=== PATIENT | female | born 1955 | race Caucasian/White ===

== ENCOUNTER 2022-03-30 22:15 | Inpatient (IN) | payer MEDICARE, OTHER ==
[~2022-03-30] VITALS: Ht 157.5 cm; Wt 63.5 kg
[2022-03-30] MEDS ORDERED: TIOT18CA3 INH (22:39)
[2022-03-30] MEDS ORDERED: PHEN100C4 PO (22:39)
[2022-03-30] MEDS ORDERED: SERT100T PO (22:39)
[2022-03-30] MEDS ORDERED: QUET400T PO (22:39)
[2022-03-30] MEDS ORDERED: PROP10TA10 PO (22:39)
[2022-03-30] MEDS ORDERED: CLON1TAB12 PO (22:39)
[2022-03-30] MEDS ORDERED: TEMA30CA PO (22:39)
[2022-03-30] MEDS ORDERED: ALBU18HF2 INH (22:39)
[2022-03-30] MEDS ORDERED: VANCOMYCIN IV 1,000 MG in IV DEXTROSE 5% 250 ML IV ONE (22:45)
[2022-03-30] MEDS ORDERED: MORPHINE SULFATE 2 MG/1 ML DISP.SYRIN IV ONE (22:45)
[2022-03-30] MEDS ORDERED: PIPERACILLIN SODIUM/TAZOBACTAM 3.375 G in IV DEXTROSE 5% 50 ML IV ONE (22:45)
[2022-03-30] MEDS ORDERED: IV NORMAL SALINE 1000 ML BAG IV ONE (22:45)
[2022-03-30] MEDS ORDERED: ACETAMINOPHEN ES 500 MG TABLET PO ONE (23:00)
[2022-03-30] MEDS ORDERED: VANCOMYCIN IV 200 ML ONE (23:13)
[2022-03-30] MEDS ORDERED: PIPERACILLIN/TAZOBACTAM/D5W 50 ML IV ONE (23:13)
[2022-03-30] MEDS ORDERED: MORPHINE SULFATE 4 MG/1 ML DISP.SYRIN ONE (23:14)
[2022-03-30] MEDS ORDERED: ACETAMINOPHEN ES 500 MG TABLET ONE (23:14)
[2022-03-30 23:19] LABS: HEMATOCRIT 28.6 % (31.2-41.9); MEAN CORPUSCULAR HEMOGLOBIN 34.1 uug (24.7-32.8); MEAN CORPUSCULAR VOLUME 103.1 fL (75.5-95.3); PLATELET COUNT (AUTO) 239 K/uL (179-408)
[2022-03-30 23:28] LABS: CARBON DIOXIDE 24 mmol/L (21-32); CHLORIDE 101 mmol/L (98-107); CREATININE 0.6 mg/dL (0.6-1.3); GLUCOSE 110 mg/dL (74-106); POTASSIUM 4.1 mmol/L (3.5-5.1); UREA NITROGEN, BLOOD 13 mg/dL (7-18)
[2022-03-30 23:41] LABS: ALANINE AMINOTRANSFERASE 6 U/L (14-59); ALKALINE PHOSPHATASE 83 U/L (50-136); ASPARTATE AMINOTRANSFERASE 19 U/L (15-37); BILIRUBIN,DIRECT 0.1 mg/dL (0.0-0.2); BILIRUBIN,TOTAL 0.4 mg/dL (0.2-1.0); TOTAL PROTEIN, SERUM 6.3 g/dL (6.4-8.2)
[2022-03-30] MEDS ORDERED: CLONAZEPAM 1 MG TABLET ONE (23:44)
[2022-03-30] MEDS ORDERED: QUETIAPINE FUMARATE 200 MG TABLET ONE (23:44)
[2022-03-30] MEDS ORDERED: QUETIAPINE FUMARATE 25 MG TABLET PO ONE (23:45)
[2022-03-30] MEDS ORDERED: IV NS 1000 ML 1,000 ML IV ONE (23:45)
[2022-03-30] MEDS ORDERED: CLONAZEPAM 0.5 MG TABLET PO ONE (23:45)
[2022-03-30] MEDS ORDERED: BENZONATATE 100 MG CAPSULE ONE (23:50)
[2022-03-31] MEDS ORDERED: SWABABLE VALVE TRANSFER SET EA MC ONE (00:41)
[2022-03-31] MEDS ORDERED: IOHEXOL 350 100 ML INFUS..BTL ONE (00:41)
[2022-03-31] MEDS ORDERED: IV NORMAL SALINE 250 ML IV ONE (00:41)
[2022-03-31 01:23] LABS: *BILIRUBIN,URIN NEGATIVE (NEGATIVE); *BLOOD, URINE NEGATIVE (NEGATIVE); *CLARITY,URINE CLEAR (CLEAR); *COLOR,URINE YELLOW (YELLOW); *KETONES,URINE NEGATIVE (NEGATIVE); *UROBILINOGEN,URINE 0.2 E.U./dl (NORMAL); LEUKOCYTE ESTERASE ,URINE NEGATIVE (NEGATIVE); NITRITE, URINE NEGATIVE (NEGATIVE); UGLUCOSE NEGATIVE (NEGATIVE)
[2022-03-31] MEDS ORDERED: ONDANSETRON 4 MG/2 ML VIAL IV PRN (01:30)
[2022-03-31] MEDS ORDERED: MAGNESIUM HYDROXIDE 30 ML LIQUID UDC PO PRN (01:30)
[2022-03-31] MEDS ORDERED: ALBUTEROL SULFATE 2.5 MG/ 0.5 ML NEBU NEB SCH ×2 (03:30→07:35)
[2022-03-31] MEDS ORDERED: IPRATROPIUM BROMIDE 0.5 MG/2.5 ML NEBU NEB SCH (03:30)
[2022-03-31] MEDS ORDERED: MORPHINE SULFATE 4 MG/1 ML DISP.SYRIN ONE (03:44)
[2022-03-31] MEDS ORDERED: MORPHINE SULFATE 4 MG/1 ML DISP.SYRIN IV ONE (03:45)
[2022-03-31] MEDS ORDERED: ACETAMINOPHEN 325 MG TABLET ONE (03:53)
[2022-03-31] MEDS: ACETAMINOPHEN 325 MG TABLET PO PRN ×2 (03:57→20:56)
[2022-03-31] MEDS ORDERED: BENZONATATE 100 MG CAPSULE ONE (04:59)
[2022-03-31] MEDS ORDERED: BENZONATATE 100 MG CAPSULE PO ONE ×2 (05:00)
[2022-03-31] MEDS ORDERED: IBUPROFEN 600 MG TABLET ONE (05:23)
[2022-03-31] MEDS ORDERED: IBUPROFEN 600 MG TABLET PO ONE (05:30)
[2022-03-31] MEDS ORDERED: IV NS 1000 ML 1,000 ML IV ONE (05:30)
[2022-03-31] MEDS ORDERED: PIPERACILLIN SODIUM/TAZOBACTAM 3.375 G in IV DEXTROSE 5% 50 ML IV SCH (06:00)
[2022-03-31] MEDS ORDERED: TEMAZEPAM 15 MG CAPSULE PO PRN (07:45)
[2022-03-31 07:53] LABS: CREATININE 0.7 mg/dL (0.6-1.3); HEMATOCRIT 25.4 % (31.2-41.9); MEAN CORPUSCULAR HEMOGLOBIN 34.6 uug (24.7-32.8); MEAN CORPUSCULAR VOLUME 103.5 fL (75.5-95.3); PLATELET COUNT (AUTO) 215 K/uL (179-408); POTASSIUM 3.4 mmol/L (3.5-5.1)
[2022-03-31] MEDS: ALBUTEROL SULFATE 2.5 MG/ 0.5 ML NEBU NEB SCH ×5 (07:55→23:48)
[2022-03-31] MEDS: IPRATROPIUM BROMIDE 0.5 MG/2.5 ML NEBU NEB SCH ×5 (07:55→23:47)
[2022-03-31 08:02] LABS: MAGNESIUM 1.2 mg/dL (1.8-2.4)
[2022-03-31 08:03] LABS: THYROID STIMULATING HORMONE 0.318 mIU/mL (0.358-3.740)
[2022-03-31] MEDS: QUETIAPINE FUMARATE 200 MG TABLET PO SCH ×2 (08:42→20:55)
[2022-03-31] MEDS: SERTRALINE HCL 100 MG TABLET PO SCH (08:42)
[2022-03-31] MEDS: PANTOPRAZOLE SODIUM 40 MG VIAL IV SCH (08:42)
[2022-03-31] MEDS: PHENYTOIN SODIUM EXTENDED 100 MG CAPSULE.SA PO SCH ×3 (08:42→17:41)
[2022-03-31] MEDS: ENOXAPARIN SODIUM 40 MG/0.4 ML DISP.SYRIN SQ SCH (08:45)
[2022-03-31] MEDS: IV NS 1000 ML 1,000 ML IV PRN (08:55)
[2022-03-31] MEDS: MORPHINE SULFATE 2 MG/1 ML DISP.SYRIN IV PRN ×2 (10:04→21:43)
[2022-03-31] MEDS: PIPERACILLIN SODIUM/TAZOBACTAM 3.375 G in IV DEXTROSE 5% 50 ML IV SCH ×2 (10:15→21:24)
[2022-03-31 11:52] VITALS: BP 96/46
[2022-03-31] MEDS ORDERED: MAGNESIUM SULFATE/D5W 100 ML IV SCH (14:00)
[2022-03-31] MEDS ORDERED: MAGNESIUM OXIDE 400 MG TABLET PO ONE (14:00)
[2022-03-31] MEDS ORDERED: POTASSIUM CHLORIDE 50 ML IV SCH (14:00)
[2022-03-31] MEDS ORDERED: POTASSIUM CHLORIDE 20 MEQ TAB.PRT.SR PO ONE (14:00)
[2022-03-31 15:36] VITALS: BP 96/49
[2022-03-31] MEDS ORDERED: FLUT1DIS28 IH (15:40)
[2022-03-31] MEDS ORDERED: POTA10CA43 PO (15:41)
[2022-03-31 20:18] VITALS: BP 110/54
[2022-03-31] MEDS ORDERED: BISACODYL 5 MG TABLET.DR PO ONE (21:30)
[2022-03-31] MEDS: VANCOMYCIN IV 1,000 MG in IV DEXTROSE 5% 250 ML IV SCH (22:11)
[2022-04-01] VITALS (19 sets, daily range): BP systolic 72–112; BP diastolic 39–68
[2022-04-01] MEDS: IPRATROPIUM BROMIDE 0.5 MG/2.5 ML NEBU NEB SCH ×5 (02:20→21:17)
[2022-04-01] MEDS: ALBUTEROL SULFATE 2.5 MG/ 0.5 ML NEBU NEB SCH ×5 (02:21→21:17)
[2022-04-01] MEDS: PIPERACILLIN SODIUM/TAZOBACTAM 3.375 G in IV DEXTROSE 5% 50 ML IV SCH ×3 (04:45→21:11)
[2022-04-01] MEDS: IV NS 1000 ML 1,000 ML IV PRN ×2 (04:49→17:51)
[2022-04-01] MEDS: MORPHINE SULFATE 2 MG/1 ML DISP.SYRIN IV PRN ×2 (06:23→10:29)
[2022-04-01] MEDS ORDERED: BISACODYL 5 MG TABLET.DR PO ONE (08:15)
[2022-04-01 08:16] LABS: HEMATOCRIT 25.2 % (31.2-41.9); MEAN CORPUSCULAR HEMOGLOBIN 34.3 uug (24.7-32.8); MEAN CORPUSCULAR VOLUME 103.3 fL (75.5-95.3); PLATELET COUNT (AUTO) 252 K/uL (179-408)
[2022-04-01] MEDS: QUETIAPINE FUMARATE 200 MG TABLET PO SCH ×2 (08:32→21:00)
[2022-04-01] MEDS: POTASSIUM CHLORIDE 10 MEQ TAB.PRT.SR PO SCH (08:32)
[2022-04-01] MEDS: SERTRALINE HCL 100 MG TABLET PO SCH (08:32)
[2022-04-01] MEDS: ENOXAPARIN SODIUM 40 MG/0.4 ML DISP.SYRIN SQ SCH (08:32)
[2022-04-01] MEDS: PANTOPRAZOLE SODIUM 40 MG VIAL IV SCH (08:32)
[2022-04-01] MEDS: PHENYTOIN SODIUM EXTENDED 100 MG CAPSULE.SA PO SCH ×3 (08:32→17:51)
[2022-04-01 08:34] LABS: BILIRUBIN,TOTAL 0.3 mg/dL (0.2-1.0); CREATININE 0.7 mg/dL (0.6-1.3); PHOSPHOROUS 3.4 mg/dL (2.5-4.9); POTASSIUM 3.2 mmol/L (3.5-5.1); TOTAL PROTEIN, SERUM 5.8 g/dL (6.4-8.2)
[2022-04-01 08:39] LABS: THYROID STIMULATING HORMONE 0.264 mIU/mL (0.358-3.740)
[2022-04-01] MEDS: MAGNESIUM SULFATE/D5W 100 ML IV SCH ×2 (09:35→10:29)
[2022-04-01] MEDS ORDERED: POTASSIUM CHLORIDE 20 MEQ TAB.PRT.SR PO ONE (10:00)
[2022-04-01] MEDS: VANCOMYCIN IV 1,000 MG in IV DEXTROSE 5% 250 ML IV SCH (11:45)
[2022-04-01] MEDS: CLONAZEPAM 1 MG TABLET PO PRN (15:02)
[2022-04-01] MEDS ORDERED: IV NORMAL SALINE 500 ML BAG IV ONE (16:45)
[2022-04-01] MEDS: PHENYLEPHRINE IV 50 MG in IV NORMAL SALINE 245 ML IV PRN (18:43)
[2022-04-01] MEDS ORDERED: IPRATROPIUM BROMIDE 0.5 MG/2.5 ML NEBU NEB PRN (20:00)
[2022-04-01] MEDS ORDERED: LEVALBUTEROL HCL NEB 0.63 MG/3 ML NEBU NEB PRN (20:00)
[2022-04-01] MEDS ORDERED: MORPHINE SULFATE 2 MG/1 ML DISP.SYRIN IV ONE (20:44)
[2022-04-01] MEDS: ACIDOPHILUS/BULGARICUS CHEW TAB PO SCH (21:11)
[2022-04-01] MEDS ORDERED: NOREPINEPHRINE BITARTRATE 4 MG/4 ML VIAL IV ONE (23:41)
[2022-04-01] MEDS ORDERED: NOREPINEPHRINE BITARTRATE 8 MG in IV NORMAL SALINE 242 ML IV PRN (23:45)
[2022-04-01] MEDS: NOREPINEPHRINE BITARTRATE 8 MG in IV NORMAL SALINE 242 ML IV PRN (23:48)
[2022-04-02] VITALS (33 sets, daily range): BP systolic 79–141; BP diastolic 32–77
[2022-04-02] MEDS ORDERED: IV DEXTROSE 5%-0.9%NS+20MeqKCL 1,000 ML IV ONE (00:30)
[2022-04-02] MEDS: IV DEXTROSE 5%-0.9%NS+20MeqKCL 1,000 ML IV PRN ×2 (00:35→15:45)
[2022-04-02] MEDS: IPRATROPIUM BROMIDE 0.5 MG/2.5 ML NEBU NEB SCH ×7 (00:49→23:20)
[2022-04-02] MEDS: ALBUTEROL SULFATE 2.5 MG/ 0.5 ML NEBU NEB SCH ×7 (00:50→23:20)
[2022-04-02] MEDS: VANCOMYCIN IV 1,000 MG in IV DEXTROSE 5% 250 ML IV SCH (03:15)
[2022-04-02] MEDS ORDERED: NOREPINEPHRINE BITARTRATE 4 MG/4 ML VIAL IV ONE (03:50)
[2022-04-02] MEDS: NOREPINEPHRINE BITARTRATE 8 MG in IV NORMAL SALINE 242 ML IV PRN ×2 (03:55→17:26)
[2022-04-02] MEDS: PIPERACILLIN SODIUM/TAZOBACTAM 3.375 G in IV DEXTROSE 5% 50 ML IV SCH ×3 (04:38→20:50)
[2022-04-02 05:32] LABS: HEMATOCRIT 28.1 % (31.2-41.9); MEAN CORPUSCULAR HEMOGLOBIN 33.1 uug (24.7-32.8); MEAN CORPUSCULAR VOLUME 103.6 fL (75.5-95.3); PLATELET COUNT (AUTO) 339 K/uL (179-408)
[2022-04-02 05:50] LABS: BILIRUBIN,TOTAL 0.3 mg/dL (0.2-1.0); CREATININE 0.8 mg/dL (0.6-1.3); PHENYTOIN (DILANTIN) 8.6 ug/mL (10.0-20.0); POTASSIUM 4.1 mmol/L (3.5-5.1); TOTAL PROTEIN, SERUM 6.6 g/dL (6.4-8.2)
[2022-04-02 06:22] LABS: ABG BASE EXCESS -7.8 mmol/L; ABG HCO3 15.5 mmol/L; ABG PCO2 24.6 mmHg (35.0-45.0); ABG PH 7.418 (7.350-7.450); ABG PO2 123.6 mmHg (75.0-100.0); ABG SITE LEFT RADIAL; ABG TOTAL HEMOGLOBIN 9.1 G/dL (12.0-16.0); COHb 0.2 % (0.5-1.5); MetHb 0.3 % (0.0-1.5); O2Hb 97.9 % (94.0-97.0); VENT MODE Nasal Cannula
[2022-04-02] MEDS: POTASSIUM CHLORIDE 10 MEQ TAB.PRT.SR PO SCH (09:34)
[2022-04-02] MEDS: QUETIAPINE FUMARATE 200 MG TABLET PO SCH ×2 (09:34→23:47)
[2022-04-02] MEDS: PHENYTOIN SODIUM EXTENDED 100 MG CAPSULE.SA PO SCH ×2 (09:34→13:59)
[2022-04-02] MEDS: PANTOPRAZOLE SODIUM 40 MG VIAL IV SCH (09:34)
[2022-04-02] MEDS: ACIDOPHILUS/BULGARICUS CHEW TAB PO SCH ×2 (09:35→20:55)
[2022-04-02] MEDS: PROTEIN SUPPLEMENT (PROSTAT) 30 ML LIQUID PO SCH ×3 (09:36→17:27)
[2022-04-02] MEDS: SERTRALINE HCL 100 MG TABLET PO SCH (09:42)
[2022-04-02] MEDS: GLUCERNA SHAKE 237 ML CAN PO SCH ×3 (10:48→17:26)
[2022-04-02] MEDS: APIXABAN 5 MG TABLET PO SCH ×2 (12:13→23:34)
[2022-04-02] MEDS: MORPHINE SULFATE 2 MG/1 ML DISP.SYRIN IV PRN (13:59)
[2022-04-02] MEDS ORDERED: SOD FERRIC GLUC COMPLX/SUCROSE 125 MG in IV NORMAL SALINE 100 ML IV SCH (14:00)
[2022-04-02] MEDS: IRON SUCROSE COMPLEX 200 MG in IV NORMAL SALINE 100 ML IV SCH (14:17)
[2022-04-02] MEDS: OSELTAMIVIR PHOSPHATE 75 MG CAPSULE PO SCH (20:51)
[2022-04-02] MEDS: levETIRAcetam 500 MG TABLET PO SCH (20:56)
[2022-04-03] VITALS (31 sets, daily range): BP systolic 100–143; BP diastolic 5–78
[2022-04-03] MEDS: PHENYLEPHRINE IV 50 MG in IV NORMAL SALINE 245 ML IV PRN (00:30)
[2022-04-03] MEDS: VANCOMYCIN IV 1,000 MG in IV DEXTROSE 5% 250 ML IV SCH (02:38)
[2022-04-03] MEDS: IPRATROPIUM BROMIDE 0.5 MG/2.5 ML NEBU NEB SCH ×6 (03:56→23:32)
[2022-04-03] MEDS: ALBUTEROL SULFATE 2.5 MG/ 0.5 ML NEBU NEB SCH ×6 (03:58→23:32)
[2022-04-03 05:35] LABS: HEMATOCRIT 25.8 % (31.2-41.9); MEAN CORPUSCULAR HEMOGLOBIN 34.9 uug (24.7-32.8); MEAN CORPUSCULAR VOLUME 103.4 fL (75.5-95.3); PLATELET COUNT (AUTO) 326 K/uL (179-408)
[2022-04-03 05:48] LABS: CREATININE 0.8 mg/dL (0.6-1.3); MAGNESIUM 1.6 mg/dL (1.8-2.4); PHOSPHOROUS 3.3 mg/dL (2.5-4.9); POTASSIUM 3.4 mmol/L (3.5-5.1)
[2022-04-03] MEDS: PIPERACILLIN SODIUM/TAZOBACTAM 3.375 G in IV DEXTROSE 5% 50 ML IV SCH ×2 (06:14→13:18)
[2022-04-03] MEDS: SERTRALINE HCL 100 MG TABLET PO SCH (09:00)
[2022-04-03] MEDS: APIXABAN 5 MG TABLET PO SCH ×2 (09:00→21:24)
[2022-04-03] MEDS: ACIDOPHILUS/BULGARICUS CHEW TAB PO SCH ×2 (09:04→21:15)
[2022-04-03] MEDS: levETIRAcetam 500 MG TABLET PO SCH (09:04)
[2022-04-03] MEDS: OSELTAMIVIR PHOSPHATE 75 MG CAPSULE PO SCH ×2 (09:05→21:15)
[2022-04-03] MEDS: QUETIAPINE FUMARATE 200 MG TABLET PO SCH ×2 (09:05→21:15)
[2022-04-03] MEDS: PANTOPRAZOLE SODIUM 40 MG TABLET.DR PO SCH (09:05)
[2022-04-03] MEDS: POTASSIUM CHLORIDE 10 MEQ TAB.PRT.SR PO SCH (09:05)
[2022-04-03] MEDS: PROTEIN SUPPLEMENT (PROSTAT) 30 ML LIQUID PO SCH ×3 (09:06→17:00)
[2022-04-03] MEDS: GLUCERNA SHAKE 237 ML CAN PO SCH ×3 (09:07→17:00)
[2022-04-03 09:53] LABS: ABG BASE EXCESS -7.4 mmol/L; ABG HCO3 18.3 mmol/L; ABG PCO2 37.6 mmHg (35.0-45.0); ABG PH 7.304 (7.350-7.450); ABG PO2 60.1 mmHg (75.0-100.0); ABG SITE LEFT RADIAL; ABG TOTAL HEMOGLOBIN 9.1 G/dL (12.0-16.0); COHb 0.1 % (0.5-1.5); MetHb 0.3 % (0.0-1.5); O2Hb 89.1 % (94.0-97.0); VENT MODE Nasal Cannula
[2022-04-03] MEDS: MAGNESIUM SULFATE/D5W 100 ML IV SCH ×2 (10:28→11:52)
[2022-04-03] MEDS ORDERED: POTASSIUM CHLORIDE 20 MEQ TAB.PRT.SR PO ONE (10:30)
[2022-04-03] MEDS: POTASSIUM CHLORIDE 50 ML IV SCH ×2 (13:27→14:50)
[2022-04-03] MEDS: methylPREDNISolone SOD SUCC 40 MG/ML VIAL IV SCH ×2 (14:08→21:15)
[2022-04-03] MEDS: PIPERACILLIN SODIUM/TAZOBACTAM 3.375 G in IV DEXTROSE 5% 100 ML IV SCH (21:06)
[2022-04-03] MEDS: levETIRAcetam IV 1,000 MG in IV DEXTROSE 5% 100 ML IV SCH (21:09)
[2022-04-04] VITALS (24 sets, daily range): BP systolic 88–162; BP diastolic 3–107
[2022-04-04] MEDS: IPRATROPIUM BROMIDE 0.5 MG/2.5 ML NEBU NEB SCH ×4 (03:25→15:20)
[2022-04-04] MEDS: ALBUTEROL SULFATE 2.5 MG/ 0.5 ML NEBU NEB SCH ×4 (03:25→15:20)
[2022-04-04] MEDS: PIPERACILLIN SODIUM/TAZOBACTAM 3.375 G in IV DEXTROSE 5% 100 ML IV SCH ×3 (04:49→21:04)
[2022-04-04] MEDS: IV DEXTROSE 5%-0.9%NS+20MeqKCL 1,000 ML IV PRN (04:53)
[2022-04-04 05:28] LABS: HEMATOCRIT 26.2 % (31.2-41.9); MEAN CORPUSCULAR HEMOGLOBIN 35.2 uug (24.7-32.8); MEAN CORPUSCULAR VOLUME 101.7 fL (75.5-95.3); PLATELET COUNT (AUTO) 391 K/uL (179-408)
[2022-04-04 05:35] LABS: CREATININE 0.7 mg/dL (0.6-1.3); POTASSIUM 3.1 mmol/L (3.5-5.1)
[2022-04-04 05:39] LABS: MAGNESIUM 1.5 mg/dL (1.8-2.4); PHOSPHOROUS 3.8 mg/dL (2.5-4.9)
[2022-04-04] MEDS ORDERED: methylPREDNISolone SOD SUCC 125 MG/2 ML VIAL IV SCH (06:00)
[2022-04-04] MEDS: PANTOPRAZOLE SODIUM 40 MG TABLET.DR PO SCH (07:00)
[2022-04-04] MEDS: methylPREDNISolone SOD SUCC 125 MG/2 ML VIAL IV SCH ×2 (07:42→16:55)
[2022-04-04] MEDS: GLUCERNA SHAKE 237 ML CAN PO SCH ×3 (08:00→17:00)
[2022-04-04] MEDS: PROTEIN SUPPLEMENT (PROSTAT) 30 ML LIQUID PO SCH ×3 (08:00→17:26)
[2022-04-04] MEDS: levETIRAcetam IV 1,000 MG in IV DEXTROSE 5% 100 ML IV SCH ×2 (09:21→21:06)
[2022-04-04] MEDS ORDERED: FUROSEMIDE 20 MG/2 ML VIAL IV ONE (10:00)
[2022-04-04] MEDS: POTASSIUM CHLORIDE 50 ML IV SCH ×4 (10:05→13:48)
[2022-04-04] MEDS: ACIDOPHILUS/BULGARICUS CHEW TAB PO SCH ×2 (10:18→21:10)
[2022-04-04] MEDS: OSELTAMIVIR PHOSPHATE 75 MG CAPSULE PO SCH ×2 (10:19→21:05)
[2022-04-04] MEDS: QUETIAPINE FUMARATE 200 MG TABLET PO SCH ×2 (10:19→21:05)
[2022-04-04] MEDS: POTASSIUM CHLORIDE 10 MEQ TAB.PRT.SR PO SCH (10:19)
[2022-04-04] MEDS: APIXABAN 5 MG TABLET PO SCH ×2 (10:21→21:37)
[2022-04-04] MEDS: SERTRALINE HCL 100 MG TABLET PO SCH (10:21)
[2022-04-04 13:51] LABS: *OCCULT BLOOD STOOL NEGATIVE (NEGATIVE)
[2022-04-04] MEDS: IRON SUCROSE COMPLEX 200 MG in IV NORMAL SALINE 100 ML IV SCH (15:03)
[2022-04-04] MEDS: MAGNESIUM SULFATE/D5W 100 ML IV SCH ×2 (15:38→16:56)
[2022-04-05] VITALS (16 sets, daily range): BP systolic 89–143; BP diastolic 47–75
[2022-04-05] MEDS: IPRATROPIUM BROMIDE 0.5 MG/2.5 ML NEBU NEB SCH ×8 (00:36→23:40)
[2022-04-05] MEDS: ALBUTEROL SULFATE 2.5 MG/ 0.5 ML NEBU NEB SCH ×8 (00:36→23:41)
[2022-04-05] MEDS: methylPREDNISolone SOD SUCC 125 MG/2 ML VIAL IV SCH ×4 (01:22→23:31)
[2022-04-05] MEDS: PIPERACILLIN SODIUM/TAZOBACTAM 3.375 G in IV DEXTROSE 5% 100 ML IV SCH ×3 (04:00→20:33)
[2022-04-05 05:35] LABS: HEMATOCRIT 25.3 % (31.2-41.9); MEAN CORPUSCULAR HEMOGLOBIN 33.9 uug (24.7-32.8); MEAN CORPUSCULAR VOLUME 100.5 fL (75.5-95.3); PLATELET COUNT (AUTO) 455 K/uL (179-408)
[2022-04-05 05:38] LABS: CREATININE 0.8 mg/dL (0.6-1.3); MAGNESIUM 1.8 mg/dL (1.8-2.4); PHOSPHOROUS 2.5 mg/dL (2.5-4.9); POTASSIUM 3.6 mmol/L (3.5-5.1)
[2022-04-05] MEDS: GLUCERNA SHAKE 237 ML CAN PO SCH ×4 (08:00→17:24)
[2022-04-05] MEDS: levETIRAcetam IV 1,000 MG in IV DEXTROSE 5% 100 ML IV SCH (08:32)
[2022-04-05] MEDS: OSELTAMIVIR PHOSPHATE 75 MG CAPSULE PO SCH ×2 (08:32→20:47)
[2022-04-05] MEDS: ACIDOPHILUS/BULGARICUS CHEW TAB PO SCH ×2 (08:33→20:46)
[2022-04-05] MEDS: APIXABAN 5 MG TABLET PO SCH ×2 (08:33→20:46)
[2022-04-05] MEDS: QUETIAPINE FUMARATE 200 MG TABLET PO SCH ×2 (08:34→20:46)
[2022-04-05] MEDS: SERTRALINE HCL 100 MG TABLET PO SCH (08:34)
[2022-04-05] MEDS: POTASSIUM CHLORIDE 10 MEQ TAB.PRT.SR PO SCH (08:34)
[2022-04-05] MEDS: PROTEIN SUPPLEMENT (PROSTAT) 30 ML LIQUID PO SCH ×3 (08:36→16:41)
[2022-04-05] MEDS: PANTOPRAZOLE SODIUM 40 MG TABLET.DR PO SCH (08:37)
[2022-04-05] MEDS: BUMETANIDE 1 MG/4 ML VIAL IV SCH ×2 (11:44→16:41)
[2022-04-05] MEDS: levETIRAcetam 500 MG TABLET PO SCH (20:46)
[2022-04-06 00:04] VITALS: BP 97/62
[2022-04-06] MEDS: PIPERACILLIN SODIUM/TAZOBACTAM 3.375 G in IV DEXTROSE 5% 100 ML IV SCH ×3 (03:00→20:05)
[2022-04-06] MEDS: IPRATROPIUM BROMIDE 0.5 MG/2.5 ML NEBU NEB SCH ×6 (03:30→23:12)
[2022-04-06] MEDS: ALBUTEROL SULFATE 2.5 MG/ 0.5 ML NEBU NEB SCH ×6 (03:30→23:12)
[2022-04-06 04:20] VITALS: BP 113/73
[2022-04-06] MEDS: PANTOPRAZOLE SODIUM 40 MG TABLET.DR PO SCH (06:21)
[2022-04-06 06:58] LABS: MEAN CORPUSCULAR HEMOGLOBIN 34.8 uug (24.7-32.8); MEAN CORPUSCULAR VOLUME 99.8 fL (75.5-95.3); PLATELET COUNT (AUTO) 582 K/uL (179-408)
[2022-04-06 07:12] LABS: CREATININE 0.8 mg/dL (0.6-1.3); MAGNESIUM 1.6 mg/dL (1.8-2.4); PHOSPHOROUS 2.9 mg/dL (2.5-4.9)
[2022-04-06 07:32] LABS: POTASSIUM 2.8 mmol/L (3.5-5.1)
[2022-04-06 07:36] VITALS: BP 115/71
[2022-04-06] MEDS: GLUCERNA SHAKE 237 ML CAN PO SCH ×3 (08:00→17:10)
[2022-04-06] MEDS: levETIRAcetam 500 MG TABLET PO SCH ×2 (09:40→20:06)
[2022-04-06] MEDS: ACIDOPHILUS/BULGARICUS CHEW TAB PO SCH ×2 (09:40→20:12)
[2022-04-06] MEDS: BUMETANIDE 1 MG/4 ML VIAL IV SCH ×2 (09:40→17:09)
[2022-04-06] MEDS: POTASSIUM CHLORIDE 10 MEQ TAB.PRT.SR PO SCH ×3 (09:41→15:53)
[2022-04-06] MEDS: OSELTAMIVIR PHOSPHATE 75 MG CAPSULE PO SCH ×2 (09:41→20:13)
[2022-04-06] MEDS: SERTRALINE HCL 100 MG TABLET PO SCH (09:41)
[2022-04-06] MEDS: QUETIAPINE FUMARATE 200 MG TABLET PO SCH ×2 (09:41→20:06)
[2022-04-06] MEDS: APIXABAN 5 MG TABLET PO SCH ×2 (09:42→20:11)
[2022-04-06] MEDS: methylPREDNISolone SOD SUCC 125 MG/2 ML VIAL IV SCH ×2 (09:44→15:52)
[2022-04-06] MEDS: MAGNESIUM SULFATE/D5W 100 ML IV SCH ×2 (09:45→10:37)
[2022-04-06] MEDS: PROTEIN SUPPLEMENT (PROSTAT) 30 ML LIQUID PO SCH ×3 (10:00→17:10)
[2022-04-06 11:19] VITALS: BP 116/66
[2022-04-06 15:21] VITALS: BP 101/50
[2022-04-06 20:29] VITALS: BP 117/67
[2022-04-07] MEDS: methylPREDNISolone SOD SUCC 125 MG/2 ML VIAL IV SCH ×3 (00:03→15:47)
[2022-04-07 00:29] VITALS: BP 117/67
[2022-04-07] MEDS: ALBUTEROL SULFATE 2.5 MG/ 0.5 ML NEBU NEB SCH ×6 (03:28→23:56)
[2022-04-07] MEDS: IPRATROPIUM BROMIDE 0.5 MG/2.5 ML NEBU NEB SCH ×6 (03:28→23:56)
[2022-04-07] MEDS: PIPERACILLIN SODIUM/TAZOBACTAM 3.375 G in IV DEXTROSE 5% 100 ML IV SCH ×3 (04:37→19:44)
[2022-04-07 05:04] VITALS: BP_SYST 117; BP_SYST 119; BP_DIAS 67; BP_DIAS 73
[2022-04-07 05:48] LABS: HEMATOCRIT 30.7 % (31.2-41.9); MEAN CORPUSCULAR HEMOGLOBIN 33.4 uug (24.7-32.8); MEAN CORPUSCULAR VOLUME 99.4 fL (75.5-95.3); PLATELET COUNT (AUTO) 738 K/uL (179-408)
[2022-04-07 05:57] LABS: POTASSIUM 3.3 mmol/L (3.5-5.1)
[2022-04-07 05:58] LABS: MAGNESIUM 1.9 mg/dL (1.8-2.4); PHOSPHOROUS 1.8 mg/dL (2.5-4.9)
[2022-04-07] MEDS: PANTOPRAZOLE SODIUM 40 MG TABLET.DR PO SCH (06:38)
[2022-04-07 07:35] VITALS: BP 126/78
[2022-04-07] MEDS: SERTRALINE HCL 100 MG TABLET PO SCH (08:29)
[2022-04-07] MEDS: QUETIAPINE FUMARATE 200 MG TABLET PO SCH ×2 (08:29→20:06)
[2022-04-07] MEDS: POTASSIUM CHLORIDE 10 MEQ TAB.PRT.SR PO SCH (08:29)
[2022-04-07] MEDS: levETIRAcetam 500 MG TABLET PO SCH ×2 (08:30→20:06)
[2022-04-07] MEDS: APIXABAN 5 MG TABLET PO SCH ×2 (08:30→20:05)
[2022-04-07] MEDS: ACIDOPHILUS/BULGARICUS CHEW TAB PO SCH ×2 (08:30→20:06)
[2022-04-07] MEDS: GLUCERNA SHAKE 237 ML CAN PO SCH ×3 (08:31→16:02)
[2022-04-07] MEDS: PROTEIN SUPPLEMENT (PROSTAT) 30 ML LIQUID PO SCH ×3 (08:31→16:03)
[2022-04-07] MEDS: MORPHINE SULFATE 2 MG/1 ML DISP.SYRIN IV PRN (08:34)
[2022-04-07] MEDS: OSELTAMIVIR PHOSPHATE 75 MG CAPSULE PO SCH (08:37)
[2022-04-07] MEDS ORDERED: POTASSIUM CHLORIDE 20 MEQ TAB.PRT.SR PO ONE (10:00)
[2022-04-07 11:06] VITALS: BP 126/71
[2022-04-07 15:10] VITALS: BP 105/57
[2022-04-07] MEDS ORDERED: NEUTRA PHOS PACKET PO SCH (16:30)
[2022-04-07 20:00] VITALS: BP 94/46
[2022-04-08] VITALS: BP 104/64
[2022-04-08] MEDS: methylPREDNISolone SOD SUCC 125 MG/2 ML VIAL IV SCH ×3 (00:36→15:54)
[2022-04-08] MEDS: ALBUTEROL SULFATE 2.5 MG/ 0.5 ML NEBU NEB SCH ×5 (03:54→19:53)
[2022-04-08] MEDS: IPRATROPIUM BROMIDE 0.5 MG/2.5 ML NEBU NEB SCH ×5 (03:54→19:53)
[2022-04-08 04:00] VITALS: BP 110/72
[2022-04-08] MEDS: PANTOPRAZOLE SODIUM 40 MG TABLET.DR PO SCH (06:29)
[2022-04-08 07:25] LABS: HEMATOCRIT 29.9 % (31.2-41.9); MEAN CORPUSCULAR HEMOGLOBIN 32.6 uug (24.7-32.8); MEAN CORPUSCULAR VOLUME 100.7 fL (75.5-95.3); PLATELET COUNT (AUTO) 782 K/uL (179-408)
[2022-04-08 07:37] LABS: CREATININE 0.8 mg/dL (0.6-1.3); MAGNESIUM 2.1 mg/dL (1.8-2.4); PHOSPHOROUS 2.9 mg/dL (2.5-4.9); POTASSIUM 3.8 mmol/L (3.5-5.1)
[2022-04-08 07:50] VITALS: BP 116/66
[2022-04-08] MEDS: PROTEIN SUPPLEMENT (PROSTAT) 30 ML LIQUID PO SCH ×3 (08:00→15:58)
[2022-04-08] MEDS: GLUCERNA SHAKE 237 ML CAN PO SCH ×3 (08:00→15:58)
[2022-04-08] MEDS: SERTRALINE HCL 100 MG TABLET PO SCH (08:41)
[2022-04-08] MEDS: POTASSIUM CHLORIDE 10 MEQ TAB.PRT.SR PO SCH (08:41)
[2022-04-08] MEDS: levETIRAcetam 500 MG TABLET PO SCH ×2 (08:41→20:54)
[2022-04-08] MEDS: APIXABAN 5 MG TABLET PO SCH ×2 (08:42→20:56)
[2022-04-08] MEDS: ACIDOPHILUS/BULGARICUS CHEW TAB PO SCH ×2 (08:42→20:54)
[2022-04-08] MEDS: QUETIAPINE FUMARATE 200 MG TABLET PO SCH (08:43)
[2022-04-08] MEDS: ALBUTEROL SULFATE 1.25 MG/3 ML NEBU NEB PRN (08:56)
[2022-04-08] MEDS ORDERED: BENZONATATE 100 MG CAPSULE PO PRN (10:00)
[2022-04-08 11:25] VITALS: BP 114/63
[2022-04-08] MEDS: ACETAMINOPHEN 325 MG TABLET PO PRN ×2 (12:12→15:54)
[2022-04-08 15:14] VITALS: BP 102/52
[2022-04-08 20:00] VITALS: BP 122/70
[2022-04-08] MEDS ORDERED: FUROSEMIDE 40 MG/4 ML VIAL IV ONE (20:30)
[2022-04-09] VITALS (18 sets, daily range): BP systolic 103–140; BP diastolic 59–84
[2022-04-09] MEDS: methylPREDNISolone SOD SUCC 125 MG/2 ML VIAL IV SCH ×3 (00:17→16:41)
[2022-04-09] MEDS: ALBUTEROL SULFATE 2.5 MG/ 0.5 ML NEBU NEB SCH ×7 (00:23→23:48)
[2022-04-09] MEDS: IPRATROPIUM BROMIDE 0.5 MG/2.5 ML NEBU NEB SCH ×7 (00:23→23:48)
[2022-04-09] MEDS: PANTOPRAZOLE SODIUM 40 MG TABLET.DR PO SCH (06:33)
[2022-04-09 06:55] LABS: HEMATOCRIT 29.8 % (31.2-41.9); MEAN CORPUSCULAR HEMOGLOBIN 34.5 uug (24.7-32.8); MEAN CORPUSCULAR VOLUME 100.6 fL (75.5-95.3); PLATELET COUNT (AUTO) 874 K/uL (179-408)
[2022-04-09 07:05] LABS: CREATININE 0.9 mg/dL (0.6-1.3); PHOSPHOROUS 2.7 mg/dL (2.5-4.9); POTASSIUM 3.3 mmol/L (3.5-5.1)
[2022-04-09] MEDS: levETIRAcetam 500 MG TABLET PO SCH ×2 (08:38→20:44)
[2022-04-09] MEDS: ACIDOPHILUS/BULGARICUS CHEW TAB PO SCH ×2 (08:38→20:44)
[2022-04-09] MEDS: SERTRALINE HCL 100 MG TABLET PO SCH (08:38)
[2022-04-09] MEDS: APIXABAN 5 MG TABLET PO SCH ×2 (08:39→22:00)
[2022-04-09] MEDS: POTASSIUM CHLORIDE 10 MEQ TAB.PRT.SR PO SCH (08:39)
[2022-04-09] MEDS: PROTEIN SUPPLEMENT (PROSTAT) 30 ML LIQUID PO SCH ×3 (08:40→16:42)
[2022-04-09] MEDS: GLUCERNA SHAKE 237 ML CAN PO SCH ×3 (08:40→17:11)
[2022-04-09] MEDS ORDERED: POTASSIUM CHLORIDE 20 MEQ TAB.PRT.SR PO ONE (10:00)
[2022-04-09] MEDS ORDERED: MEROPENEM 0.5 G in IV NORMAL SALINE 50 ML IV SCH (11:15)
[2022-04-09 11:57] LABS: BAND % (MANUAL) 1 % (0-10); EOSINOPHILS % (MANUAL) 1 % (0-8); LYMPHOCYTES % (MANUAL) 7 % (20-40); MONOCYTES % (MANUAL) 2 % (2-10); NEUTROPHILS % (MANUAL) 89 % (42-75)
[2022-04-09] MEDS ORDERED: VANCOMYCIN IV 1,250 MG in IV DEXTROSE 5% 250 ML IV ONE (12:00)
[2022-04-09] MEDS: CLONAZEPAM 1 MG TABLET PO PRN (12:15)
[2022-04-09] MEDS: MEROPENEM 1 G in IV NORMAL SALINE 100 ML IV SCH ×2 (14:53→22:23)
[2022-04-09] MEDS: ACETAMINOPHEN 325 MG TABLET PO PRN (22:00)
[2022-04-10] VITALS (24 sets, daily range): BP systolic 104–127; BP diastolic 60–99
[2022-04-10] MEDS: methylPREDNISolone SOD SUCC 125 MG/2 ML VIAL IV SCH ×2 (00:34→08:35)
[2022-04-10] MEDS: IPRATROPIUM BROMIDE 0.5 MG/2.5 ML NEBU NEB SCH ×6 (03:17→23:41)
[2022-04-10] MEDS: ALBUTEROL SULFATE 2.5 MG/ 0.5 ML NEBU NEB SCH ×6 (03:18→23:41)
[2022-04-10 05:10] LABS: HEMATOCRIT 29.3 % (31.2-41.9); MEAN CORPUSCULAR HEMOGLOBIN 32.9 uug (24.7-32.8); MEAN CORPUSCULAR VOLUME 101.3 fL (75.5-95.3); PLATELET COUNT (AUTO) 853 K/uL (179-408)
[2022-04-10 05:30] LABS: CREATININE 0.8 mg/dL (0.6-1.3); MAGNESIUM 1.9 mg/dL (1.8-2.4); PHOSPHOROUS 2.4 mg/dL (2.5-4.9); POTASSIUM 3.9 mmol/L (3.5-5.1)
[2022-04-10] MEDS: MEROPENEM 1 G in IV NORMAL SALINE 100 ML IV SCH ×3 (05:40→22:09)
[2022-04-10] MEDS: ACETAMINOPHEN 325 MG TABLET PO PRN ×2 (05:40→06:15)
[2022-04-10 06:02] LABS: BAND % (MANUAL) 4 % (0-10)
[2022-04-10 06:03] LABS: LYMPHOCYTES % (MANUAL) 6 % (20-40); MONOCYTES % (MANUAL) 2 % (2-10); NEUTROPHILS % (MANUAL) 88 % (42-75)
[2022-04-10] MEDS: VANCOMYCIN IV 1,000 MG in IV DEXTROSE 5% 250 ML IV SCH ×2 (06:14→23:40)
[2022-04-10] MEDS: PANTOPRAZOLE SODIUM 40 MG TABLET.DR PO SCH (07:28)
[2022-04-10] MEDS: levETIRAcetam 500 MG TABLET PO SCH ×2 (08:36→21:46)
[2022-04-10] MEDS: ACIDOPHILUS/BULGARICUS CHEW TAB PO SCH ×2 (08:36→21:46)
[2022-04-10] MEDS: POTASSIUM CHLORIDE 10 MEQ TAB.PRT.SR PO SCH (08:37)
[2022-04-10] MEDS: APIXABAN 5 MG TABLET PO SCH ×2 (08:37→22:32)
[2022-04-10] MEDS: GLUCERNA SHAKE 237 ML CAN PO SCH ×3 (08:39→17:26)
[2022-04-10] MEDS: SERTRALINE HCL 100 MG TABLET PO SCH (08:39)
[2022-04-10] MEDS: PROTEIN SUPPLEMENT (PROSTAT) 30 ML LIQUID PO SCH ×3 (08:41→17:26)
[2022-04-10] MEDS ORDERED: NEUTRA PHOS PACKET PO ONE (17:00)
[2022-04-10] MEDS: methylPREDNISolone SOD SUCC 40 MG/ML VIAL IV SCH (21:46)
[2022-04-11] VITALS (22 sets, daily range): BP systolic 97–128; BP diastolic 48–74
[2022-04-11] MEDS: ALBUTEROL SULFATE 2.5 MG/ 0.5 ML NEBU NEB SCH ×6 (03:02→23:13)
[2022-04-11] MEDS: IPRATROPIUM BROMIDE 0.5 MG/2.5 ML NEBU NEB SCH ×6 (03:02→23:13)
[2022-04-11] MEDS: MEROPENEM 1 G in IV NORMAL SALINE 100 ML IV SCH ×3 (05:24→22:25)
[2022-04-11 05:36] LABS: HEMATOCRIT 30.7 % (31.2-41.9); MEAN CORPUSCULAR HEMOGLOBIN 32.7 uug (24.7-32.8); MEAN CORPUSCULAR VOLUME 102.6 fL (75.5-95.3); PLATELET COUNT (AUTO) 834 K/uL (179-408)
[2022-04-11 05:49] LABS: CREATININE 0.7 mg/dL (0.6-1.3); MAGNESIUM 2.1 mg/dL (1.8-2.4); PHOSPHOROUS 3.1 mg/dL (2.5-4.9); POTASSIUM 3.8 mmol/L (3.5-5.1)
[2022-04-11 06:11] LABS: BAND % (MANUAL) 4 % (0-10); LYMPHOCYTES % (MANUAL) 7 % (20-40)
[2022-04-11 06:12] LABS: MONOCYTES % (MANUAL) 3 % (2-10); NEUTROPHILS % (MANUAL) 86 % (42-75)
[2022-04-11 08:16] LABS: ABG HCO3 28.7 mmol/L; ABG PH 7.385 (7.350-7.450); ABG PO2 66.7 mmHg (75.0-100.0); ABG SITE RIGHT RADIAL; ABG TOTAL HEMOGLOBIN 11.2 G/dL (12.0-16.0); COHb 0.1 % (0.5-1.5); MetHb 0.3 % (0.0-1.5); O2Hb 92.9 % (94.0-97.0); VENT MODE HF
[2022-04-11] MEDS: methylPREDNISolone SOD SUCC 40 MG/ML VIAL IV SCH ×2 (08:29→20:50)
[2022-04-11] MEDS: POTASSIUM CHLORIDE 10 MEQ TAB.PRT.SR PO SCH (08:29)
[2022-04-11] MEDS: ACIDOPHILUS/BULGARICUS CHEW TAB PO SCH ×2 (08:29→20:50)
[2022-04-11] MEDS: PANTOPRAZOLE SODIUM 40 MG TABLET.DR PO SCH (08:29)
[2022-04-11] MEDS: CYANOCOBALAMIN 1,000 MCG TABLET PO SCH (08:30)
[2022-04-11] MEDS: SERTRALINE HCL 100 MG TABLET PO SCH (08:31)
[2022-04-11] MEDS: PROTEIN SUPPLEMENT (PROSTAT) 30 ML LIQUID PO SCH ×3 (08:32→17:06)
[2022-04-11] MEDS: GLUCERNA SHAKE 237 ML CAN PO SCH ×3 (08:32→17:22)
[2022-04-11] MEDS: levETIRAcetam 500 MG TABLET PO SCH ×2 (08:34→20:52)
[2022-04-11] MEDS: APIXABAN 5 MG TABLET PO SCH ×2 (08:39→20:53)
[2022-04-11] MEDS: CLONAZEPAM 1 MG TABLET PO PRN (11:20)
[2022-04-11] MEDS: VANCOMYCIN IV 1,000 MG in IV DEXTROSE 5% 250 ML IV SCH (18:00)
[2022-04-11] MEDS: REMEDY ESSENTIAL ZINC PASTE 113 GM TP PRN (22:00)
[2022-04-12] VITALS (10 sets, daily range): BP systolic 92–125; BP diastolic 33–77
[2022-04-12] MEDS: ACETAMINOPHEN 325 MG TABLET PO PRN ×2 (00:49→09:24)
[2022-04-12] MEDS: MORPHINE SULFATE 2 MG/1 ML DISP.SYRIN IV PRN (01:22)
[2022-04-12] MEDS: IPRATROPIUM BROMIDE 0.5 MG/2.5 ML NEBU NEB SCH ×6 (02:50→23:08)
[2022-04-12] MEDS: ALBUTEROL SULFATE 2.5 MG/ 0.5 ML NEBU NEB SCH ×6 (02:51→23:08)
[2022-04-12] MEDS ORDERED: IV NORMAL SALINE 250 ML IV PRN (05:00)
[2022-04-12 05:20] LABS: HEMATOCRIT 28.5 % (31.2-41.9); MEAN CORPUSCULAR HEMOGLOBIN 32.7 uug (24.7-32.8); MEAN CORPUSCULAR VOLUME 101.8 fL (75.5-95.3); PLATELET COUNT (AUTO) 646 K/uL (179-408)
[2022-04-12] MEDS: MEROPENEM 1 G in IV NORMAL SALINE 100 ML IV SCH ×3 (05:34→21:06)
[2022-04-12 05:36] LABS: CREATININE 0.6 mg/dL (0.6-1.3); PHOSPHOROUS 2.7 mg/dL (2.5-4.9)
[2022-04-12] MEDS: PANTOPRAZOLE SODIUM 40 MG TABLET.DR PO SCH (05:41)
[2022-04-12] MEDS: PROTEIN SUPPLEMENT (PROSTAT) 30 ML LIQUID PO SCH ×3 (08:00→17:00)
[2022-04-12] MEDS: GLUCERNA SHAKE 237 ML CAN PO SCH ×3 (09:19→17:00)
[2022-04-12] MEDS: ACIDOPHILUS/BULGARICUS CHEW TAB PO SCH ×2 (09:21→22:10)
[2022-04-12] MEDS: POTASSIUM CHLORIDE 10 MEQ TAB.PRT.SR PO SCH (09:21)
[2022-04-12] MEDS: methylPREDNISolone SOD SUCC 40 MG/ML VIAL IV SCH ×2 (09:21→22:10)
[2022-04-12] MEDS: SERTRALINE HCL 100 MG TABLET PO SCH (09:23)
[2022-04-12] MEDS: CYANOCOBALAMIN 1,000 MCG TABLET PO SCH (09:23)
[2022-04-12] MEDS: APIXABAN 5 MG TABLET PO SCH ×2 (09:23→22:05)
[2022-04-12] MEDS: levETIRAcetam 500 MG TABLET PO SCH ×2 (09:23→22:10)
[2022-04-12] MEDS: CLONAZEPAM 1 MG TABLET PO PRN (09:34)
[2022-04-12] MEDS: VANCOMYCIN IV 1,000 MG in IV DEXTROSE 5% 250 ML IV SCH (16:37)
[2022-04-12] MEDS: QUETIAPINE FUMARATE 100 MG TABLET PO SCH (21:06)
[2022-04-12] MEDS: HYDROCODONE/APAP 5-325MG TABLET PO PRN (22:11)
[2022-04-13] VITALS (22 sets, daily range): BP systolic 84–136; BP diastolic 33–90
[2022-04-13] MEDS: IPRATROPIUM BROMIDE 0.5 MG/2.5 ML NEBU NEB SCH ×6 (03:09→23:27)
[2022-04-13] MEDS: ALBUTEROL SULFATE 2.5 MG/ 0.5 ML NEBU NEB SCH ×6 (03:09→23:28)
[2022-04-13 04:58] LABS: HEMATOCRIT 29.7 % (31.2-41.9); MEAN CORPUSCULAR HEMOGLOBIN 33.3 uug (24.7-32.8); MEAN CORPUSCULAR VOLUME 101.2 fL (75.5-95.3); PLATELET COUNT (AUTO) 603 K/uL (179-408)
[2022-04-13] MEDS: MEROPENEM 1 G in IV NORMAL SALINE 100 ML IV SCH ×3 (05:16→21:30)
[2022-04-13 05:38] LABS: CREATININE 0.7 mg/dL (0.6-1.3); MAGNESIUM 2.1 mg/dL (1.8-2.4); PHOSPHOROUS 2.7 mg/dL (2.5-4.9); POTASSIUM 3.9 mmol/L (3.5-5.1)
[2022-04-13] MEDS: PANTOPRAZOLE SODIUM 40 MG TABLET.DR PO SCH (06:17)
[2022-04-13] MEDS: QUETIAPINE FUMARATE 100 MG TABLET PO SCH ×2 (08:45→20:37)
[2022-04-13] MEDS: CYANOCOBALAMIN 1,000 MCG TABLET PO SCH (08:46)
[2022-04-13] MEDS: levETIRAcetam 500 MG TABLET PO SCH ×2 (08:47→20:37)
[2022-04-13] MEDS: HYDROCODONE/APAP 5-325MG TABLET PO PRN ×2 (08:47→22:45)
[2022-04-13] MEDS: ACIDOPHILUS/BULGARICUS CHEW TAB PO SCH ×2 (08:47→20:37)
[2022-04-13] MEDS: methylPREDNISolone SOD SUCC 40 MG/ML VIAL IV SCH ×2 (08:48→20:34)
[2022-04-13] MEDS: SERTRALINE HCL 100 MG TABLET PO SCH (08:48)
[2022-04-13] MEDS: APIXABAN 5 MG TABLET PO SCH ×2 (08:49→21:00)
[2022-04-13] MEDS: GLUCERNA SHAKE 237 ML CAN PO SCH ×3 (08:49→19:10)
[2022-04-13] MEDS: POTASSIUM CHLORIDE 10 MEQ TAB.PRT.SR PO SCH (08:49)
[2022-04-13] MEDS: PROTEIN SUPPLEMENT (PROSTAT) 30 ML LIQUID PO SCH ×3 (08:50→17:00)
[2022-04-13] MEDS: VANCOMYCIN IV 1,000 MG in IV DEXTROSE 5% 250 ML IV SCH (12:59)
[2022-04-14] VITALS (23 sets, daily range): BP systolic 88–141; BP diastolic 50–76
[2022-04-14] MEDS: ALBUTEROL SULFATE 2.5 MG/ 0.5 ML NEBU NEB SCH ×6 (03:30→23:30)
[2022-04-14] MEDS: IPRATROPIUM BROMIDE 0.5 MG/2.5 ML NEBU NEB SCH ×6 (03:30→23:30)
[2022-04-14 05:17] LABS: HEMATOCRIT 29.8 % (31.2-41.9); MEAN CORPUSCULAR HEMOGLOBIN 33.1 uug (24.7-32.8); MEAN CORPUSCULAR VOLUME 101.9 fL (75.5-95.3); PLATELET COUNT (AUTO) 548 K/uL (179-408)
[2022-04-14 05:30] LABS: BILIRUBIN,TOTAL 0.2 mg/dL (0.2-1.0); CREATININE 0.7 mg/dL (0.6-1.3); MAGNESIUM 2.3 mg/dL (1.8-2.4); POTASSIUM 3.8 mmol/L (3.5-5.1); TOTAL PROTEIN, SERUM 6.4 g/dL (6.4-8.2)
[2022-04-14] MEDS: PANTOPRAZOLE SODIUM 40 MG TABLET.DR PO SCH (06:33)
[2022-04-14] MEDS: methylPREDNISolone SOD SUCC 40 MG/ML VIAL IV SCH ×2 (08:43→20:44)
[2022-04-14] MEDS: ACIDOPHILUS/BULGARICUS CHEW TAB PO SCH ×2 (08:44→20:44)
[2022-04-14] MEDS: levETIRAcetam 500 MG TABLET PO SCH ×2 (08:44→20:44)
[2022-04-14] MEDS: POTASSIUM CHLORIDE 10 MEQ TAB.PRT.SR PO SCH (08:44)
[2022-04-14] MEDS: APIXABAN 5 MG TABLET PO SCH ×2 (08:45→21:00)
[2022-04-14] MEDS: QUETIAPINE FUMARATE 100 MG TABLET PO SCH ×2 (08:46→20:44)
[2022-04-14] MEDS: CYANOCOBALAMIN 1,000 MCG TABLET PO SCH (08:46)
[2022-04-14] MEDS: SERTRALINE HCL 100 MG TABLET PO SCH (08:47)
[2022-04-14] MEDS: PROTEIN SUPPLEMENT (PROSTAT) 30 ML LIQUID PO SCH ×3 (08:48→17:18)
[2022-04-14] MEDS: GLUCERNA SHAKE 237 ML CAN PO SCH ×3 (08:48→17:17)
[2022-04-14] MEDS: HYDROCODONE/APAP 5-325MG TABLET PO PRN ×4 (08:57→23:46)
[2022-04-14] MEDS: CLONAZEPAM 1 MG TABLET PO PRN (20:45)
[2022-04-15] VITALS (12 sets, daily range): BP systolic 93–136; BP diastolic 53–70
[2022-04-15] MEDS: ALBUTEROL SULFATE 2.5 MG/ 0.5 ML NEBU NEB SCH ×5 (03:24→21:20)
[2022-04-15] MEDS: IPRATROPIUM BROMIDE 0.5 MG/2.5 ML NEBU NEB SCH ×5 (03:24→21:20)
[2022-04-15] MEDS: PANTOPRAZOLE SODIUM 40 MG TABLET.DR PO SCH (09:01)
[2022-04-15] MEDS: POTASSIUM CHLORIDE 10 MEQ TAB.PRT.SR PO SCH (09:02)
[2022-04-15] MEDS: CYANOCOBALAMIN 1,000 MCG TABLET PO SCH (09:02)
[2022-04-15] MEDS: QUETIAPINE FUMARATE 100 MG TABLET PO SCH ×2 (09:02→20:00)
[2022-04-15] MEDS: SERTRALINE HCL 100 MG TABLET PO SCH (09:03)
[2022-04-15] MEDS: levETIRAcetam 500 MG TABLET PO SCH ×2 (09:04→20:01)
[2022-04-15] MEDS: ACIDOPHILUS/BULGARICUS CHEW TAB PO SCH ×2 (09:04→20:00)
[2022-04-15] MEDS: methylPREDNISolone SOD SUCC 40 MG/ML VIAL IV SCH ×2 (09:05→20:00)
[2022-04-15] MEDS: ALBUTEROL SULFATE 1.25 MG/3 ML NEBU NEB PRN (09:07)
[2022-04-15] MEDS: APIXABAN 5 MG TABLET PO SCH ×2 (09:07→20:43)
[2022-04-15] MEDS: PROTEIN SUPPLEMENT (PROSTAT) 30 ML LIQUID PO SCH ×3 (09:20→17:27)
[2022-04-15] MEDS: GLUCERNA SHAKE 237 ML CAN PO SCH ×3 (09:20→17:26)
[2022-04-15 11:36] LABS: CREATININE 0.7 mg/dL (0.6-1.3); MAGNESIUM 2.2 mg/dL (1.8-2.4); POTASSIUM 3.3 mmol/L (3.5-5.1)
[2022-04-15 11:41] LABS: HEMATOCRIT 28.5 % (31.2-41.9); MEAN CORPUSCULAR HEMOGLOBIN 32.7 uug (24.7-32.8); MEAN CORPUSCULAR VOLUME 102.7 fL (75.5-95.3); PLATELET COUNT (AUTO) 446 K/uL (179-408)
[2022-04-15] MEDS: HYDROCODONE/APAP 5-325MG TABLET PO PRN (15:07)
[2022-04-16] MEDS: ALBUTEROL SULFATE 2.5 MG/ 0.5 ML NEBU NEB SCH ×6 (01:06→19:20)
[2022-04-16] MEDS: IPRATROPIUM BROMIDE 0.5 MG/2.5 ML NEBU NEB SCH ×6 (01:06→19:20)
[2022-04-16 04:00] VITALS: BP 105/52
[2022-04-16] MEDS: HYDROCODONE/APAP 5-325MG TABLET PO PRN ×2 (05:43→18:03)
[2022-04-16] MEDS: PANTOPRAZOLE SODIUM 40 MG TABLET.DR PO SCH (06:07)
[2022-04-16 06:33] LABS: HEMATOCRIT 30.2 % (31.2-41.9); MEAN CORPUSCULAR HEMOGLOBIN 32.6 uug (24.7-32.8); MEAN CORPUSCULAR VOLUME 101.9 fL (75.5-95.3); PLATELET COUNT (AUTO) 413 K/uL (179-408)
[2022-04-16 06:40] LABS: CREATININE 0.6 mg/dL (0.6-1.3); MAGNESIUM 2.1 mg/dL (1.8-2.4); PHOSPHOROUS 2.9 mg/dL (2.5-4.9)
[2022-04-16] MEDS: methylPREDNISolone SOD SUCC 40 MG/ML VIAL IV SCH (08:43)
[2022-04-16] MEDS: CYANOCOBALAMIN 1,000 MCG TABLET PO SCH (08:44)
[2022-04-16] MEDS: ACIDOPHILUS/BULGARICUS CHEW TAB PO SCH (08:44)
[2022-04-16] MEDS: SERTRALINE HCL 100 MG TABLET PO SCH (08:44)
[2022-04-16] MEDS: POTASSIUM CHLORIDE 10 MEQ TAB.PRT.SR PO SCH (08:45)
[2022-04-16] MEDS: QUETIAPINE FUMARATE 100 MG TABLET PO SCH (08:45)
[2022-04-16] MEDS: levETIRAcetam 500 MG TABLET PO SCH (08:45)
[2022-04-16] MEDS: GLUCERNA SHAKE 237 ML CAN PO SCH ×3 (08:46→17:11)
[2022-04-16] MEDS: PROTEIN SUPPLEMENT (PROSTAT) 30 ML LIQUID PO SCH ×3 (08:46→17:12)
[2022-04-16] MEDS: APIXABAN 5 MG TABLET PO SCH (08:47)
[2022-04-16] MEDS: REMEDY ESSENTIAL ZINC PASTE 113 GM TP PRN (08:48)
[2022-04-16 12:13] VITALS: BP 102/54
[2022-04-16 16:00] VITALS: BP 94/52
[2022-04-16 20:00] VITALS: BP 109/61
[2022-04-16] MEDS ORDERED: methylPREDNISolone SOD SUCC 40 MG/ML VIAL IV SCH (21:00)
== END 2022-04-16 22:22 | DRG 871 ==
LOC: ER 22:15 → TELE3 03-31 05:26 → CCU 04-01 17:20 → TELE-TD3 04-05 18:53 → CCU 04-09 08:57 → TELE-TD3 04-15 07:37 → TELE3 04-16 11:45
PROVIDERS: ADMIT Internal Medicine; ATTEND Nurse Practitioner Family
PROC: 05H533Z Insertion of Infusion Device into Right Subclavian Vein, Percutaneous Approach (ICD-10-PCS; principal; 2022-03-31)
PROC: B546ZZA Ultrasonography of Right Subclavian Vein, Guidance (ICD-10-PCS; 2022-03-31)
DX: A41.89 Other specified sepsis (principal); E43 Unspecified severe protein-calorie malnutrition; J10.01 Influenza due to other identified influenza virus with the same other identified influenza virus pneumonia; J69.0 Pneumonitis due to inhalation of food and vomit; J96.01 Acute respiratory failure with hypoxia; R65.21 Severe sepsis with septic shock; E87.20 Acidosis, unspecified; D68.69 Other thrombophilia; J44.0 Chronic obstructive pulmonary disease with (acute) lower respiratory infection; D64.9 Anemia, unspecified; E83.42 Hypomagnesemia; E87.6 Hypokalemia; G40.909 Epilepsy, unspecified, not intractable, without status epilepticus; I48.91 Unspecified atrial fibrillation; Z86.16 Personal history of COVID-19; Z87.01 Personal history of pneumonia (recurrent); Z90.49 Acquired absence of other specified parts of digestive tract; E05.90 Thyrotoxicosis, unspecified without thyrotoxic crisis or storm; F17.210 Nicotine dependence, cigarettes, uncomplicated; G89.4 Chronic pain syndrome; Z86.19 Personal history of other infectious and parasitic diseases; Z20.822 Contact with and (suspected) exposure to COVID-19; Z74.09 Other reduced mobility; E66.9 Obesity, unspecified; Z68.25 Body mass index [BMI] 25.0-25.9, adult; F41.9 Anxiety disorder, unspecified; M54.30 Sciatica, unspecified side; I73.9 Peripheral vascular disease, unspecified; F43.10 Post-traumatic stress disorder, unspecified; Z79.891 Long term (current) use of opiate analgesic; F32.A Depression, unspecified; Z91.81 History of falling; Z96.642 Presence of left artificial hip joint
CPT/HCPCS: 36415; 36600; 70030-TC; 71045; 71250; 71275; 73700; 82747; 83550; 83605; 83690; 83735; 84100; 84443; 84484; 85014; 85025; 86140; 86803; 87040; 87400; 93005; 94640; 94664; 97535-GO-CO; A4663; A9150; C9113; G0378; J1650; J1756; J1940; J1953; J2185; J2270; J2370; J2543; J2916; J2920; J2930; J3370; J3475; J3480; J3490; J3590; J7040; J7050; Q9967; U0003

== ENCOUNTER 2022-04-16 22:23 | Inpatient (IN) | payer MEDICARE, OTHER ==
[~2022-04-16] VITALS: Ht 157.5 cm; Wt 72.6 kg
[2022-04-16 20:00] VITALS: BP 109/61
[~2022-04-16 22:23] MED LIST: ALBU18HF2 INH; CLON1TAB12 PO; FLUT1DIS28 IH; PHEN100C4 PO; POTA10CA43 PO; PROP10TA10 PO; QUET400T PO; SERT100T PO; TEMA30CA PO; TIOT18CA3 INH
[2022-04-16] MEDS: HYDROCODONE/APAP 5-325MG TABLET PO PRN (23:57)
[2022-04-17] MEDS: APIXABAN 2.5 MG TABLET PO SCH ×2 (00:29→09:43)
[2022-04-17] MEDS: IPRATROPIUM BROMIDE 0.5 MG/2.5 ML NEBU NEB SCH ×6 (02:44→23:30)
[2022-04-17] MEDS: ALBUTEROL SULFATE 2.5 MG/ 0.5 ML NEBU NEB SCH ×2 (02:45→07:59)
[2022-04-17 04:00] VITALS: BP 107/59
[2022-04-17] MEDS: PANTOPRAZOLE SODIUM 40 MG TABLET.DR PO SCH (06:19)
[2022-04-17 08:01] VITALS: BP 107/53
[2022-04-17] MEDS ORDERED: FAMOTIDINE 20 MG TABLET PO SCH (09:00)
[2022-04-17] MEDS: REMEDY ESSENTIAL ZINC PASTE 113 GM TOP SCH ×2 (09:00→21:44)
[2022-04-17] MEDS: methylPREDNISolone SOD SUCC 40 MG/ML VIAL IV SCH ×2 (09:41→21:43)
[2022-04-17] MEDS: MULTIVITAMINS,THERAPEUTIC TABLET PO SCH (09:41)
[2022-04-17] MEDS: ACIDOPHILUS/BULGARICUS CHEW TAB PO SCH ×2 (09:44→21:44)
[2022-04-17] MEDS: levETIRAcetam 500 MG TABLET PO SCH ×2 (09:44→21:43)
[2022-04-17] MEDS: POTASSIUM CHLORIDE 10 MEQ TAB.PRT.SR PO SCH (09:44)
[2022-04-17] MEDS: SERTRALINE HCL 100 MG TABLET PO SCH (09:45)
[2022-04-17] MEDS: CYANOCOBALAMIN 1,000 MCG TABLET PO SCH (09:45)
[2022-04-17] MEDS: QUETIAPINE FUMARATE 100 MG TABLET PO SCH ×2 (09:46→17:46)
[2022-04-17] MEDS: DOCUSATE SODIUM 100 MG CAPSULE PO SCH ×2 (09:46→21:43)
--- NOTE | 2022-04-17 09:50 | NUR ---
Patient is awake, alert, oriented x 4, not in any form of distress, on 3LPM via nasal cannula. Compliant with medications sitting on the wheelchair having breakfast after having been seen by PT. Assisted with her needs. Noted with clean and dry dressing on the left hip and left lateral thigh. Call light and frequently used items placed within reach.
[2022-04-17] MEDS: HYDROCODONE/APAP 5-325MG TABLET PO PRN (10:34)
[2022-04-17] MEDS: ALBUTEROL SULFATE 2.5 MG/3 ML NEBU NEB SCH ×4 (11:19→23:30)
[2022-04-17] MEDS: CLONAZEPAM 1 MG TABLET PO PRN (15:10)
[2022-04-17 15:40] VITALS: BP 91/45
[2022-04-17] MEDS: GLUCERNA SHAKE 237 ML CAN PO SCH (18:28)
[2022-04-17] MEDS: APIXABAN 5 MG TABLET PO SCH (21:44)
[2022-04-17] MEDS: TEMAZEPAM 15 MG CAPSULE PO SCH (23:15)
[2022-04-18] MEDS: ALBUTEROL SULFATE 2.5 MG/3 ML NEBU NEB SCH ×6 (03:27→21:39)
[2022-04-18] MEDS: IPRATROPIUM BROMIDE 0.5 MG/2.5 ML NEBU NEB SCH ×6 (03:27→21:39)
[2022-04-18] MEDS: HYDROCODONE/APAP 5-325MG TABLET PO PRN ×2 (04:11→15:38)
[2022-04-18] MEDS: PANTOPRAZOLE SODIUM 40 MG TABLET.DR PO SCH (05:45)
[2022-04-18 06:57] LABS: HEMATOCRIT 27.6 % (31.2-41.9); MEAN CORPUSCULAR HEMOGLOBIN 33.1 uug (24.7-32.8); MEAN CORPUSCULAR VOLUME 101.5 fL (75.5-95.3); PLATELET COUNT (AUTO) 336 K/uL (179-408)
[2022-04-18 07:29] LABS: CREATININE 0.7 mg/dL (0.6-1.3); MAGNESIUM 2.1 mg/dL (1.8-2.4); PHOSPHOROUS 4.1 mg/dL (2.5-4.9); POTASSIUM 3.6 mmol/L (3.5-5.1)
[2022-04-18 07:57] VITALS: BP 104/49
[2022-04-18] MEDS: levETIRAcetam 500 MG TABLET PO SCH ×2 (08:58→20:20)
[2022-04-18] MEDS: CLONAZEPAM 1 MG TABLET PO PRN (08:58)
[2022-04-18] MEDS: POTASSIUM CHLORIDE 10 MEQ TAB.PRT.SR PO SCH (08:58)
[2022-04-18] MEDS: QUETIAPINE FUMARATE 100 MG TABLET PO SCH ×2 (08:58→17:10)
[2022-04-18] MEDS: DOCUSATE SODIUM 100 MG CAPSULE PO SCH ×2 (08:58→20:19)
[2022-04-18] MEDS: SERTRALINE HCL 100 MG TABLET PO SCH (08:58)
[2022-04-18] MEDS: MULTIVITAMINS,THERAPEUTIC TABLET PO SCH (08:58)
[2022-04-18] MEDS: ACIDOPHILUS/BULGARICUS CHEW TAB PO SCH ×2 (08:59→20:20)
[2022-04-18] MEDS: CYANOCOBALAMIN 1,000 MCG TABLET PO SCH (08:59)
[2022-04-18] MEDS: methylPREDNISolone SOD SUCC 40 MG/ML VIAL IV SCH ×2 (09:01→20:21)
[2022-04-18] MEDS: APIXABAN 5 MG TABLET PO SCH ×2 (09:01→20:21)
[2022-04-18] MEDS: GLUCERNA SHAKE 237 ML CAN PO SCH (09:06)
[2022-04-18] MEDS: REMEDY ESSENTIAL ZINC PASTE 113 GM TOP SCH ×2 (09:06→20:19)
--- NOTE | 2022-04-18 13:34 | NUR ---
INTERDISCIPLINARY TEAM CONFERENCE
[2022-04-18 15:51] VITALS: BP 93/57
--- NOTE | 2022-04-18 19:30 | NUR ---
RECEIVED REPORT FROM BRET MORALEZ. PATIENT IS ALERT AND ORIENTED X4, AND SPEAKS CANADIAN. PATIENT PARTICIPATES IN PHYSICAL THERAPY WELL. PATIENT TOLERATES PO MEDICATIONS AND DIET WELL. PATIENT HAS PATENT ALDRIDGE CATHETER AND VOIDS ADEQUATELY. RN NOTED LEFT ANKLE WITH SORE. PER PATIENT REQUEST, RN CLEANED WOUND WITH NS 0.9%, APPLIED XEROFORM, AND TRANSPARENT DRESSING IN PLACE. PHOTOS TAKEN AND PUT INTO CHART. PATIENT HAD COMPLAINT REGARDING NC GIVING HER IRRITATION NEAR THE NARES. RN APPLIED GAUZE TO THE NARES. PATIENT EXPRESS REDUCTION IN IRRITATION. NO ACUTE DISTRESS NOTED. PATIENT RESTS ADEQUATELY DURING SHIFT. FALL PRECAUTIONS MAINTAINED, BED ALARM AND BED IN LOWEST POSITION. ALL NEEDS ATTENDED TO AT THIS TIME. ENDORSED CARE TO BRET MORALEZ, NOC SHIFT.
[2022-04-18 20:08] VITALS: BP 93/56
[2022-04-18] MEDS: TEMAZEPAM 15 MG CAPSULE PO SCH (20:19)
[2022-04-19] MEDS: ALBUTEROL SULFATE 2.5 MG/3 ML NEBU NEB SCH ×7 (00:19→23:42)
[2022-04-19] MEDS: IPRATROPIUM BROMIDE 0.5 MG/2.5 ML NEBU NEB SCH ×7 (00:19→23:42)
[2022-04-19 04:30] VITALS: BP 107/56
[2022-04-19] MEDS: PANTOPRAZOLE SODIUM 40 MG TABLET.DR PO SCH (06:11)
[2022-04-19] MEDS: HYDROCODONE/APAP 5-325MG TABLET PO PRN ×2 (06:16→14:42)
[2022-04-19 08:07] VITALS: BP 105/65
[2022-04-19] MEDS: QUETIAPINE FUMARATE 100 MG TABLET PO SCH ×2 (09:10→16:30)
[2022-04-19] MEDS: DOCUSATE SODIUM 100 MG CAPSULE PO SCH ×2 (09:11→20:27)
[2022-04-19] MEDS: POTASSIUM CHLORIDE 10 MEQ TAB.PRT.SR PO SCH (09:11)
[2022-04-19] MEDS: CYANOCOBALAMIN 1,000 MCG TABLET PO SCH (09:12)
[2022-04-19] MEDS: ACETAMINOPHEN 325 MG TABLET PO PRN ×2 (09:18→15:59)
[2022-04-19] MEDS: MULTIVITAMINS,THERAPEUTIC TABLET PO SCH (09:18)
[2022-04-19] MEDS: ACIDOPHILUS/BULGARICUS CHEW TAB PO SCH ×2 (09:18→20:28)
[2022-04-19] MEDS: levETIRAcetam 500 MG TABLET PO SCH ×2 (09:18→20:28)
[2022-04-19] MEDS: methylPREDNISolone SOD SUCC 40 MG/ML VIAL IV SCH (09:19)
[2022-04-19] MEDS: SERTRALINE HCL 100 MG TABLET PO SCH (09:19)
[2022-04-19] MEDS: APIXABAN 5 MG TABLET PO SCH ×2 (09:20→20:29)
[2022-04-19] MEDS: REMEDY ESSENTIAL ZINC PASTE 113 GM TOP SCH ×2 (09:35→20:39)
[2022-04-19] MEDS: GLUCERNA SHAKE 237 ML CAN PO SCH ×3 (09:35→16:38)
--- NOTE | 2022-04-19 09:56 | NUR ---
INDIVIDUALIZED PLAN OF CARE
[2022-04-19] MEDS: CLONAZEPAM 1 MG TABLET PO PRN ×2 (11:15→20:37)
--- NOTE | 2022-04-19 11:30 | NUR ---
HHN tx not given, pt not in rm
[2022-04-19 15:44] VITALS: BP 111/64
--- NOTE | 2022-04-19 19:55 | NUR ---
RECEIVED REPORT FROM BRET MORALEZ. PATIENT IS ALERT AND ORIENTED X4, AND SPEAKS FRENCH. PATIENT PARTICIPATES IN PHYSICAL & OCCUPATIONAL THERAPY WELL. VITAL SIGNS WITHIN NORMAL LIMITS. PATIENT TOLERATES PO MEDICATIONS AND DIET WELL. PATIENT HAS PATENT ALDRIDGE CATHETER AND VOIDING ADEQUATELY. REMOVED SUZAN PER MD ORDER WITH FRANCISCO LO RN. CHANGED DRESSING ON LEFT HIP PER MD REQUEST. SURGICAL SITE CLEAN AND DRY, NO DRAINAGE NOTED. PATIENT HAD REPORTED PAIN. PATIENT REQUESTED TO GET A HIGHER PAIN MEDICATION DOSE. RN CONTACT MD AND RECEIVED ORDER FOR THE HIGHER PAIN MEDICATION DOSAGE. NO ACUTE DISTRESS NOTED. PATIENT RESTS ADEQUATELY DURING SHIFT. FALL PRECAUTIONS MAINTAINED, BED ALARM AND BED IN LOWEST POSITION. ALL NEEDS ATTENDED TO AT THIS TIME. ENDORSED CARE TO BRET RONDON, NOC SHIFT.
[2022-04-19 20:10] VITALS: BP 91/57
[2022-04-19] MEDS: TEMAZEPAM 15 MG CAPSULE PO SCH (20:28)
[2022-04-19] MEDS: HYDROCODONE/APAP 10-325 MG TABLET PO PRN (20:37)
[2022-04-20] MEDS: IPRATROPIUM BROMIDE 0.5 MG/2.5 ML NEBU NEB SCH ×6 (03:30→23:09)
[2022-04-20] MEDS: ALBUTEROL SULFATE 2.5 MG/3 ML NEBU NEB SCH ×6 (03:30→23:09)
[2022-04-20 04:20] VITALS: BP 129/73
--- NOTE | 2022-04-20 04:54 | NUR ---
S/P left hip IM nailing due to a fall at home. AAOx4 All needs attended. VSS Kept comfortable. No acute distress noted. Fall precautions maintained. Mirza catheter intact, draining yellow urine. I & O monitor. All due meds given without difficulty. Denies any pain nor any discomfort. Left hip dressing intact.
[2022-04-20] MEDS: HYDROCODONE/APAP 10-325 MG TABLET PO PRN (05:36)
[2022-04-20] MEDS: PANTOPRAZOLE SODIUM 40 MG TABLET.DR PO SCH (06:03)
[2022-04-20 07:52] VITALS: BP 129/72
[2022-04-20] MEDS: QUETIAPINE FUMARATE 100 MG TABLET PO SCH ×2 (09:11→17:23)
[2022-04-20] MEDS: CYANOCOBALAMIN 1,000 MCG TABLET PO SCH (09:11)
[2022-04-20] MEDS: levETIRAcetam 500 MG TABLET PO SCH ×2 (09:11→21:40)
[2022-04-20] MEDS: DOCUSATE SODIUM 100 MG CAPSULE PO SCH ×2 (09:11→21:40)
[2022-04-20] MEDS: ACIDOPHILUS/BULGARICUS CHEW TAB PO SCH ×2 (09:11→21:39)
[2022-04-20] MEDS: SERTRALINE HCL 100 MG TABLET PO SCH (09:11)
[2022-04-20] MEDS: POTASSIUM CHLORIDE 10 MEQ TAB.PRT.SR PO SCH (09:11)
[2022-04-20] MEDS: MULTIVITAMINS,THERAPEUTIC TABLET PO SCH (09:12)
[2022-04-20] MEDS: REMEDY ESSENTIAL ZINC PASTE 113 GM TOP SCH ×2 (09:13→21:41)
[2022-04-20] MEDS: APIXABAN 5 MG TABLET PO SCH ×2 (09:13→21:40)
[2022-04-20] MEDS: GLUCERNA SHAKE 237 ML CAN PO SCH ×2 (09:14→17:23)
[2022-04-20] MEDS: methylPREDNISolone SOD SUCC 40 MG/ML VIAL IV SCH (09:19)
[2022-04-20] MEDS: ACETAMINOPHEN 325 MG TABLET PO PRN ×2 (10:37→17:33)
[2022-04-20 16:34] VITALS: BP 99/55
[2022-04-20] MEDS: TEMAZEPAM 15 MG CAPSULE PO SCH (21:39)
[2022-04-21] MEDS: HYDROCODONE/APAP 10-325 MG TABLET PO PRN ×3 (00:05→21:53)
[2022-04-21] MEDS: ALBUTEROL SULFATE 1.25 MG/3 ML NEBU NEB PRN (01:20)
[2022-04-21] MEDS: ACETAMINOPHEN 325 MG TABLET PO PRN ×3 (03:22→17:31)
[2022-04-21] MEDS: IPRATROPIUM BROMIDE 0.5 MG/2.5 ML NEBU NEB SCH ×6 (03:30→23:30)
[2022-04-21] MEDS: ALBUTEROL SULFATE 2.5 MG/3 ML NEBU NEB SCH ×6 (03:30→23:30)
--- NOTE | 2022-04-21 06:11 | NUR ---
SHIFT NOTE: PT IS ALERT AND ORIENTED X4 PT ALDRIDGE IS INTACT DRAINING CLEAR YELLOW URINE PT WAS GIVEN APPLE JUICE BUT SPILLED IT ON GOWN AND LINEN WHICH WAS CHANGED. MEDICATION GIVEN ORDERED NO SIGNS OF RESPIRATORY DISTRESS NOTED. PT GIVEN TYLENOL 650MG FOR TOOTHACHE PAIN REASSESSED IN AN HOUR PT SLEEPING. NO SIGNS OF FALLS NOTED. PT MONITORED EVERY 2 HOURS FOR SAFETY ANY OTHER NEEDS PT MAY HAVE. WILL ENDORSE TO AM NURSE.
[2022-04-21] MEDS: PANTOPRAZOLE SODIUM 40 MG TABLET.DR PO SCH (06:40)
[2022-04-21 07:44] VITALS: BP 114/68
[2022-04-21] MEDS: MULTIVITAMINS,THERAPEUTIC TABLET PO SCH (08:59)
[2022-04-21] MEDS: ACIDOPHILUS/BULGARICUS CHEW TAB PO SCH ×2 (09:00→21:00)
[2022-04-21] MEDS: CYANOCOBALAMIN 1,000 MCG TABLET PO SCH (09:00)
[2022-04-21] MEDS: POTASSIUM CHLORIDE 10 MEQ TAB.PRT.SR PO SCH (09:00)
[2022-04-21] MEDS: QUETIAPINE FUMARATE 100 MG TABLET PO SCH ×2 (09:00→17:31)
[2022-04-21] MEDS: levETIRAcetam 500 MG TABLET PO SCH ×2 (09:00→21:00)
[2022-04-21] MEDS: SERTRALINE HCL 100 MG TABLET PO SCH (09:00)
[2022-04-21] MEDS: methylPREDNISolone SOD SUCC 40 MG/ML VIAL IV SCH (09:00)
[2022-04-21] MEDS: DOCUSATE SODIUM 100 MG CAPSULE PO SCH ×2 (09:00→21:00)
[2022-04-21] MEDS: REMEDY ESSENTIAL ZINC PASTE 113 GM TOP SCH ×2 (09:04→21:00)
[2022-04-21] MEDS: APIXABAN 5 MG TABLET PO SCH ×2 (09:04→21:00)
[2022-04-21] MEDS: GLUCERNA SHAKE 237 ML CAN PO SCH ×2 (09:05→17:35)
[2022-04-21 15:49] VITALS: BP 91/57
[2022-04-21 20:00] VITALS: BP 94/63
[2022-04-21] MEDS: TEMAZEPAM 15 MG CAPSULE PO SCH (21:00)
[2022-04-22] VITALS: BP 97/70
[2022-04-22] MEDS: ALBUTEROL SULFATE 2.5 MG/3 ML NEBU NEB SCH ×6 (03:30→23:05)
[2022-04-22] MEDS: IPRATROPIUM BROMIDE 0.5 MG/2.5 ML NEBU NEB SCH ×6 (03:30→23:04)
[2022-04-22 04:00] VITALS: BP 92/68
[2022-04-22] MEDS: PANTOPRAZOLE SODIUM 40 MG TABLET.DR PO SCH (07:03)
--- NOTE | 2022-04-22 07:30 | NUR ---
SHIFT NOTE; RECEIVED REPORT FROM NURSE DUNCAN PT IS ALERT AND ORIENTED X4 PT TAYA LOPEZ CHANGED AND ALDRIDGE CARE DONE. PT C/O PAIN GAVE NORCO10/325 1 TAB GIVEN AND SCHEDULED MEDICATION GIVEN ORDERED. VITALS SIGNS WNL . NO SIGNS OF ADVERSE REACTION FROM MEDICATION. WILL CONTINUE TO MONITOR EVERY 2 HOURS FOR FALL AND SAFETY OTHER NEEDS PATIENT MAY REQUIRE WILL ENDORSE TO AM NURSE.
[2022-04-22] MEDS: DOCUSATE SODIUM 100 MG CAPSULE PO SCH ×2 (09:00→20:36)
[2022-04-22] MEDS: levETIRAcetam 500 MG TABLET PO SCH ×2 (09:32→20:37)
[2022-04-22] MEDS: POTASSIUM CHLORIDE 10 MEQ TAB.PRT.SR PO SCH (09:32)
[2022-04-22] MEDS: SERTRALINE HCL 100 MG TABLET PO SCH (09:35)
[2022-04-22] MEDS: QUETIAPINE FUMARATE 100 MG TABLET PO SCH ×2 (09:35→17:02)
[2022-04-22] MEDS: ACIDOPHILUS/BULGARICUS CHEW TAB PO SCH ×2 (09:35→20:37)
[2022-04-22] MEDS: predniSONE 10 MG TABLET PO SCH (09:35)
[2022-04-22] MEDS: CYANOCOBALAMIN 1,000 MCG TABLET PO SCH (09:35)
[2022-04-22] MEDS: MULTIVITAMINS,THERAPEUTIC TABLET PO SCH (09:35)
[2022-04-22] MEDS: APIXABAN 5 MG TABLET PO SCH ×2 (09:38→20:37)
[2022-04-22] MEDS: HYDROCODONE/APAP 10-325 MG TABLET PO PRN (09:44)
--- NOTE | 2022-04-22 09:45 | NUR ---
PATIENT C/O INCISIONAL PAIN MEDICATED WITH NORCO ORDERED MADE COMFORTABLE.
[2022-04-22] MEDS: GLUCERNA SHAKE 237 ML CAN PO SCH ×2 (09:47→17:03)
[2022-04-22] MEDS: REMEDY ESSENTIAL ZINC PASTE 113 GM TOP SCH ×2 (09:48→20:38)
[2022-04-22] MEDS ORDERED: IV NORMAL SALINE 500 ML IV ONE (12:45)
--- NOTE | 2022-04-22 13:17 | NUR ---
NORMAL SALINE BOLUS STARTED AT THIS TIME ORDERED BLOOD PRESSURE IS 91/57 PATIENT IS ASSYMPTOMATIC.
[2022-04-22] MEDS: CLONAZEPAM 1 MG TABLET PO PRN (14:18)
[2022-04-22 18:00] VITALS: BP 119/87
--- NOTE | 2022-04-22 18:26 | NUR ---
RESTING IN ROOM DENIES DISCOMFORTS WA MEDICATED WITH KLONOPIN AT 1418 PER HER REQUEST B/P SYSTOLIC IS 101 AT THIS TIME
[2022-04-22 19:25] VITALS: BP 92/48
[2022-04-22] MEDS: TEMAZEPAM 15 MG CAPSULE PO SCH (20:37)
[2022-04-22] MEDS: HYDROCODONE/APAP 5-325MG TABLET PO PRN (20:38)
[2022-04-22 20:43] VITALS: BP 94/59
[2022-04-23] MEDS: ALBUTEROL SULFATE 2.5 MG/3 ML NEBU NEB SCH ×6 (03:03→23:22)
[2022-04-23] MEDS: IPRATROPIUM BROMIDE 0.5 MG/2.5 ML NEBU NEB SCH ×6 (03:03→23:22)
[2022-04-23 05:16] VITALS: BP 114/67
[2022-04-23] MEDS: PANTOPRAZOLE SODIUM 40 MG TABLET.DR PO SCH (06:14)
--- NOTE | 2022-04-23 07:03 | NUR ---
Medicated once for pain with relief. No further complaint presented. Slept well. No acute distress. VS stable.
[2022-04-23 07:40] VITALS: BP 124/64
[2022-04-23] MEDS: POTASSIUM CHLORIDE 10 MEQ TAB.PRT.SR PO SCH (09:04)
[2022-04-23] MEDS: APIXABAN 5 MG TABLET PO SCH ×2 (09:05→21:12)
[2022-04-23] MEDS: predniSONE 10 MG TABLET PO SCH (09:05)
[2022-04-23] MEDS: QUETIAPINE FUMARATE 100 MG TABLET PO SCH ×2 (09:05→17:28)
[2022-04-23] MEDS: DOCUSATE SODIUM 100 MG CAPSULE PO SCH ×2 (09:05→21:11)
[2022-04-23] MEDS: levETIRAcetam 500 MG TABLET PO SCH ×2 (09:05→21:11)
[2022-04-23] MEDS: ACIDOPHILUS/BULGARICUS CHEW TAB PO SCH ×2 (09:05→21:11)
[2022-04-23] MEDS: SERTRALINE HCL 100 MG TABLET PO SCH (09:05)
[2022-04-23] MEDS: MULTIVITAMINS,THERAPEUTIC TABLET PO SCH (09:05)
[2022-04-23] MEDS: GLUCERNA SHAKE 237 ML CAN PO SCH ×2 (09:06→17:28)
[2022-04-23] MEDS: REMEDY ESSENTIAL ZINC PASTE 113 GM TOP SCH ×2 (09:06→21:16)
[2022-04-23] MEDS: CYANOCOBALAMIN 1,000 MCG TABLET PO SCH (09:06)
[2022-04-23] MEDS: CLONAZEPAM 1 MG TABLET PO PRN (09:13)
[2022-04-23] MEDS: HYDROCODONE/APAP 10-325 MG TABLET PO PRN (10:07)
[2022-04-23] MEDS: ALBUTEROL SULFATE 1.25 MG/3 ML NEBU NEB PRN (10:18)
--- NOTE | 2022-04-23 11:07 | NUR ---
0730-Patient rec'd in bed, awake, A/Ox4, no respiratory distress noted; oxygen via nc as ordered and keila well. Safety precaution reminders provided. A clutter free environment provided. Bedside table in place with all needed items accessible to patient. Encouraged and reminded to use call light for help every time needed with good understanding.
[2022-04-23 15:41] VITALS: BP 105/67
--- NOTE | 2022-04-23 18:57 | NUR ---
Patient compliant with care/treatment, cooperative with nursing staff, eating and drinking well. Dressing to LT hip ORIF done as ordered. No SS of bleeding or infection noted. All safety precautions observed. Needs anticipated and met.
[2022-04-23 20:00] VITALS: BP 94/50
[2022-04-23] MEDS: TEMAZEPAM 15 MG CAPSULE PO SCH (21:11)
[2022-04-23] MEDS: HYDROCODONE/APAP 5-325MG TABLET PO PRN (21:12)
[2022-04-24] MEDS: IPRATROPIUM BROMIDE 0.5 MG/2.5 ML NEBU NEB SCH ×6 (03:35→23:30)
[2022-04-24] MEDS: ALBUTEROL SULFATE 2.5 MG/3 ML NEBU NEB SCH ×6 (03:36→23:30)
[2022-04-24 04:00] VITALS: BP 102/60
[2022-04-24] MEDS: PANTOPRAZOLE SODIUM 40 MG TABLET.DR PO SCH (06:01)
[2022-04-24 07:01] LABS: CREATININE 0.6 mg/dL (0.6-1.3); MAGNESIUM 1.9 mg/dL (1.8-2.4); PHOSPHOROUS 3.2 mg/dL (2.5-4.9); POTASSIUM 3.4 mmol/L (3.5-5.1)
[2022-04-24 07:05] LABS: HEMATOCRIT 24.8 % (31.2-41.9); MEAN CORPUSCULAR HEMOGLOBIN 33.1 uug (24.7-32.8); MEAN CORPUSCULAR VOLUME 100.6 fL (75.5-95.3); PLATELET COUNT (AUTO) 222 K/uL (179-408)
--- NOTE | 2022-04-24 07:15 | NUR ---
0730-Rec'd in bed asleep, responds to verbal and tactile stimuli. No physical or respiratory distress noted. Colostomy bag secured with site intact. Safety measures in place and call light at reach. Addendum: 04/24/22 at 1256 by ANGIE CIFUENTES RN INCORRECT ENTRY.
[2022-04-24 08:02] VITALS: BP 121/70
[2022-04-24] MEDS: QUETIAPINE FUMARATE 100 MG TABLET PO SCH ×2 (08:28→16:18)
[2022-04-24] MEDS: SERTRALINE HCL 100 MG TABLET PO SCH (08:29)
[2022-04-24] MEDS: levETIRAcetam 500 MG TABLET PO SCH ×2 (08:29→20:32)
[2022-04-24] MEDS: ACIDOPHILUS/BULGARICUS CHEW TAB PO SCH ×2 (08:29→20:31)
[2022-04-24] MEDS: CYANOCOBALAMIN 1,000 MCG TABLET PO SCH (08:29)
[2022-04-24] MEDS: DOCUSATE SODIUM 100 MG CAPSULE PO SCH ×2 (08:29→20:31)
[2022-04-24] MEDS: MULTIVITAMINS,THERAPEUTIC TABLET PO SCH (08:30)
[2022-04-24] MEDS: APIXABAN 5 MG TABLET PO SCH ×2 (08:30→20:32)
[2022-04-24] MEDS: POTASSIUM CHLORIDE 10 MEQ TAB.PRT.SR PO SCH (08:30)
[2022-04-24] MEDS: predniSONE 10 MG TABLET PO SCH (08:33)
[2022-04-24] MEDS: HYDROCODONE/APAP 10-325 MG TABLET PO PRN ×3 (08:46→20:39)
[2022-04-24] MEDS: REMEDY ESSENTIAL ZINC PASTE 113 GM TOP SCH ×2 (09:31→20:32)
[2022-04-24] MEDS: GLUCERNA SHAKE 237 ML CAN PO SCH ×2 (09:32→17:03)
[2022-04-24] MEDS: CLONAZEPAM 1 MG TABLET PO PRN (10:39)
[2022-04-24] MEDS ORDERED: POTASSIUM CHLORIDE 20 MEQ TAB.PRT.SR PO ONE (11:00)
--- NOTE | 2022-04-24 12:56 | NUR ---
0730-Rec'd in bed asleep, responds to verbal and tactile stimuli. No physical or respiratory distress noted. Mirza cath patient and draining to gravity, patient denies bladder discomfort, no hematuria/sediments/foul odor. Safety measures in place and call light at reach. 1300-Assisted patient with her lunch tray and to set up food items. Patient able to feed herself, no swallowing problems observed. Oral fluids taken well, no unusual observations at this time. Call light within reach, encouraged to use it every time help is needed with good understanding.
[2022-04-24] MEDS ORDERED: PIPERACILLIN SODIUM/TAZOBACTAM 3.375 G in IV DEXTROSE 5% 50 ML IV SCH (16:30)
[2022-04-24 17:23] VITALS: BP 114/63
[2022-04-24] MEDS: PIPERACILLIN SODIUM/TAZOBACTAM 3.375 G in IV DEXTROSE 5% 100 ML IV SCH (17:42)
[2022-04-24 20:00] VITALS: BP 94/54
[2022-04-24] MEDS: TEMAZEPAM 15 MG CAPSULE PO SCH (20:31)
[2022-04-25] MEDS: PIPERACILLIN SODIUM/TAZOBACTAM 3.375 G in IV DEXTROSE 5% 100 ML IV SCH ×3 (01:04→17:31)
[2022-04-25] MEDS: ALBUTEROL SULFATE 2.5 MG/3 ML NEBU NEB SCH ×7 (03:30→23:30)
[2022-04-25] MEDS: IPRATROPIUM BROMIDE 0.5 MG/2.5 ML NEBU NEB SCH ×7 (03:30→23:30)
[2022-04-25 04:00] VITALS: BP 97/54
[2022-04-25] MEDS: PANTOPRAZOLE SODIUM 40 MG TABLET.DR PO SCH (06:07)
[2022-04-25 06:57] LABS: CREATININE 0.8 mg/dL (0.6-1.3); PHOSPHOROUS 3.8 mg/dL (2.5-4.9); POTASSIUM 3.7 mmol/L (3.5-5.1)
[2022-04-25 07:14] LABS: HEMATOCRIT 23.2 % (31.2-41.9); MEAN CORPUSCULAR HEMOGLOBIN 33.4 uug (24.7-32.8); MEAN CORPUSCULAR VOLUME 101.4 fL (75.5-95.3); PLATELET COUNT (AUTO) 219 K/uL (179-408)
[2022-04-25 07:53] VITALS: BP 120/68
[2022-04-25] MEDS ORDERED: POTASSIUM CHLORIDE 20 MEQ TAB.PRT.SR PO ONE (08:30)
[2022-04-25 08:55] LABS: BILIRUBIN,DIRECT 0.1 mg/dL (0.0-0.2); BILIRUBIN,TOTAL 0.2 mg/dL (0.2-1.0); TOTAL PROTEIN, SERUM 5.5 g/dL (6.4-8.2)
[2022-04-25] MEDS: CLONAZEPAM 1 MG TABLET PO PRN ×2 (09:15→17:31)
[2022-04-25] MEDS: GLUCERNA SHAKE 237 ML CAN PO SCH ×2 (09:18→17:55)
[2022-04-25] MEDS: REMEDY ESSENTIAL ZINC PASTE 113 GM TOP SCH ×2 (09:19→21:01)
--- NOTE | 2022-04-25 10:00 | NUR ---
Spoke with Julia from Pharmacy re Dr. Irwin order for 20meq of K in addition to her regular order of 10meq of K. Pt's K level is 3.7. Julia stated that she would check with Dr. Irwin and call me back.
--- NOTE | 2022-04-25 10:05 | NUR ---
Received report from weight shifter. Pt resting in bed. A&Ox4. Pt had chest xray, PT this AM and taken downstairs for CT of face and has yet to return for her morning meds. Was able to give pt Klonopin before she left for her CT. Will give meds as soon as pt returns to the floor.
--- NOTE | 2022-04-25 10:27 | NUR ---
INTERDISCIPLINARY TEAM CONFERENCE
--- NOTE | 2022-04-25 10:39 | NUR ---
Pt returned to the floor for meds and care.
[2022-04-25] MEDS: HYDROCODONE/APAP 10-325 MG TABLET PO PRN ×3 (10:50→22:52)
[2022-04-25] MEDS: POTASSIUM CHLORIDE 10 MEQ TAB.PRT.SR PO SCH (11:05)
[2022-04-25] MEDS: CYANOCOBALAMIN 1,000 MCG TABLET PO SCH (11:05)
[2022-04-25] MEDS: QUETIAPINE FUMARATE 100 MG TABLET PO SCH ×2 (11:05→17:32)
[2022-04-25] MEDS: SERTRALINE HCL 100 MG TABLET PO SCH (11:05)
[2022-04-25] MEDS: DOCUSATE SODIUM 100 MG CAPSULE PO SCH ×2 (11:06→21:00)
[2022-04-25] MEDS: MULTIVITAMINS,THERAPEUTIC TABLET PO SCH (11:06)
[2022-04-25] MEDS: ACIDOPHILUS/BULGARICUS CHEW TAB PO SCH ×2 (11:06→20:59)
[2022-04-25] MEDS: levETIRAcetam 500 MG TABLET PO SCH ×2 (11:06→21:00)
[2022-04-25] MEDS: APIXABAN 5 MG TABLET PO SCH ×2 (11:08→21:01)
[2022-04-25] MEDS: predniSONE 10 MG TABLET PO SCH (11:20)
--- NOTE | 2022-04-25 13:35 | NUR ---
I called Julia from Pharmacy back at 1253, she confirmed that Dr. Irwin wants to give the extra 20meq of potassium, that he is aware of K level 3.7 and aware that she already gets 10meq daily. Pt was in a deep sleep from then until now. I woke her up to give her her potassium.
[2022-04-25 15:31] VITALS: BP 94/56
--- NOTE | 2022-04-25 19:24 | NUR ---
Endorsed pt to night nurse, Silas, with full report.
[2022-04-25 20:00] VITALS: BP 100/80
[2022-04-25] MEDS: TEMAZEPAM 15 MG CAPSULE PO SCH (21:00)
[2022-04-26] MEDS: PIPERACILLIN SODIUM/TAZOBACTAM 3.375 G in IV DEXTROSE 5% 100 ML IV SCH ×3 (01:11→17:07)
[2022-04-26] MEDS: IPRATROPIUM BROMIDE 0.5 MG/2.5 ML NEBU NEB SCH ×6 (03:30→23:07)
[2022-04-26] MEDS: ALBUTEROL SULFATE 2.5 MG/3 ML NEBU NEB SCH ×6 (03:30→23:07)
[2022-04-26 04:00] VITALS: BP 109/64
[2022-04-26] MEDS: PANTOPRAZOLE SODIUM 40 MG TABLET.DR PO SCH (06:18)
[2022-04-26 07:32] VITALS: BP 102/61
[2022-04-26] MEDS: SERTRALINE HCL 100 MG TABLET PO SCH (08:36)
[2022-04-26] MEDS: MULTIVITAMINS,THERAPEUTIC TABLET PO SCH (08:36)
[2022-04-26] MEDS: QUETIAPINE FUMARATE 100 MG TABLET PO SCH ×2 (08:36→17:07)
[2022-04-26] MEDS: DOCUSATE SODIUM 100 MG CAPSULE PO SCH ×2 (08:36→21:12)
[2022-04-26] MEDS: levETIRAcetam 500 MG TABLET PO SCH ×2 (08:36→21:12)
[2022-04-26] MEDS: POTASSIUM CHLORIDE 10 MEQ TAB.PRT.SR PO SCH (08:36)
[2022-04-26] MEDS: ACIDOPHILUS/BULGARICUS CHEW TAB PO SCH ×2 (08:36→21:19)
[2022-04-26] MEDS: PROTEIN SUPPLEMENT (PROSTAT) 30 ML LIQUID PO SCH (08:37)
[2022-04-26] MEDS: CYANOCOBALAMIN 1,000 MCG TABLET PO SCH (08:37)
[2022-04-26] MEDS: predniSONE 10 MG TABLET PO SCH (08:37)
[2022-04-26] MEDS: GLUCERNA SHAKE 237 ML CAN PO SCH ×2 (08:37→17:07)
[2022-04-26] MEDS: REMEDY ESSENTIAL ZINC PASTE 113 GM TOP SCH ×2 (08:38→21:14)
[2022-04-26] MEDS: HYDROCODONE/APAP 10-325 MG TABLET PO PRN (08:40)
[2022-04-26] MEDS: APIXABAN 5 MG TABLET PO SCH ×2 (08:43→21:16)
[2022-04-26] MEDS: CLONAZEPAM 1 MG TABLET PO PRN (10:05)
[2022-04-26 15:33] VITALS: BP 101/58
[2022-04-26 15:57] VITALS: BP 101/59
[2022-04-26] MEDS: TEMAZEPAM 15 MG CAPSULE PO SCH (21:12)
[2022-04-27] MEDS: PIPERACILLIN SODIUM/TAZOBACTAM 3.375 G in IV DEXTROSE 5% 100 ML IV SCH ×3 (02:12→18:04)
[2022-04-27 07:56] VITALS: BP 105/69
[2022-04-27] MEDS: ALBUTEROL SULFATE 2.5 MG/3 ML NEBU NEB SCH ×5 (08:06→23:30)
[2022-04-27] MEDS: IPRATROPIUM BROMIDE 0.5 MG/2.5 ML NEBU NEB SCH ×5 (08:06→23:30)
[2022-04-27] MEDS: PROTEIN SUPPLEMENT (PROSTAT) 30 ML LIQUID PO SCH (08:35)
[2022-04-27] MEDS: POTASSIUM CHLORIDE 10 MEQ TAB.PRT.SR PO SCH (08:37)
[2022-04-27] MEDS: LOPERAMIDE HCL 2 MG CAPSULE PO PRN (08:39)
[2022-04-27] MEDS: HYDROCODONE/APAP 5-325MG TABLET PO PRN (08:39)
[2022-04-27] MEDS: SERTRALINE HCL 100 MG TABLET PO SCH (08:41)
[2022-04-27] MEDS: CYANOCOBALAMIN 1,000 MCG TABLET PO SCH (08:41)
[2022-04-27] MEDS: MULTIVITAMINS,THERAPEUTIC TABLET PO SCH (08:44)
[2022-04-27] MEDS: PANTOPRAZOLE SODIUM 40 MG TABLET.DR PO SCH (08:47)
[2022-04-27] MEDS: CLONAZEPAM 1 MG TABLET PO PRN ×2 (08:47→18:43)
[2022-04-27] MEDS: predniSONE 10 MG TABLET PO SCH (09:00)
[2022-04-27] MEDS: QUETIAPINE FUMARATE 100 MG TABLET PO SCH ×2 (09:00→18:04)
[2022-04-27] MEDS: ACIDOPHILUS/BULGARICUS CHEW TAB PO SCH ×2 (09:00→20:59)
[2022-04-27] MEDS: DOCUSATE SODIUM 100 MG CAPSULE PO SCH ×2 (09:00→21:00)
[2022-04-27] MEDS: GLUCERNA SHAKE 237 ML CAN PO SCH ×2 (09:00→18:04)
[2022-04-27] MEDS: APIXABAN 5 MG TABLET PO SCH ×2 (09:00→21:07)
[2022-04-27] MEDS: REMEDY ESSENTIAL ZINC PASTE 113 GM TOP SCH ×2 (09:00→21:08)
[2022-04-27] MEDS: levETIRAcetam 500 MG TABLET PO SCH ×2 (09:00→20:59)
[2022-04-27] MEDS: OXYCODONE/APAP 5-325 MG TABLET PO PRN ×2 (13:36→21:09)
[2022-04-27 15:50] VITALS: BP 99/50
--- NOTE | 2022-04-27 18:40 | NUR ---
pt on bed resting. aox4. anxious. no acute distress noted. no complain of pain. no edema noted. buttock and groin area redness noted; wound care consult ordered. call light on bedside; safety measured in placed.
[2022-04-27] MEDS: TEMAZEPAM 15 MG CAPSULE PO SCH (20:59)
[2022-04-28] MEDS: PIPERACILLIN SODIUM/TAZOBACTAM 3.375 G in IV DEXTROSE 5% 100 ML IV SCH ×3 (02:00→17:44)
[2022-04-28] MEDS: ALBUTEROL SULFATE 2.5 MG/3 ML NEBU NEB SCH ×6 (03:30→23:30)
[2022-04-28] MEDS: IPRATROPIUM BROMIDE 0.5 MG/2.5 ML NEBU NEB SCH ×6 (03:30→23:30)
[2022-04-28] MEDS: PANTOPRAZOLE SODIUM 40 MG TABLET.DR PO SCH (06:05)
--- NOTE | 2022-04-28 06:37 | NUR ---
SHIFT NOTE; PATIENT IS ALERT AND ORIENTED X4 PT C/O BEING SWEATING AND IN PAIN PT LINEN WAS CHANGE AND AIR MATTRESS INFLATED. ALL LINEN CHANGED. PATIENT DIAPER CHANGED AND RASH REDNESS ETC. AM NURSE ORDERED A WOUND CONSULT. MEDICATION GIVEN ORDERED NO SIGNS OF ADVERSE REACTION NOTED. PT ANTIBIOTIC FLAGYL AND ROCHEPHIN IS D/C 04/27/22. PT GIVEN PEROCET 5/325 FOR PAIN PT ASSESSED WITHIN HOUR PT ASLEEP AND NO SIGNS OF RESPIRATORY DISTRESS NOTED. PT IS MONITORED EVERY 2 HOURS AND PRN FOR PAIN OTHER NEEDS PT MAY HAVE.
[2022-04-28] MEDS: POTASSIUM CHLORIDE 10 MEQ TAB.PRT.SR PO SCH (08:18)
[2022-04-28] MEDS: QUETIAPINE FUMARATE 100 MG TABLET PO SCH ×2 (08:18→16:36)
[2022-04-28] MEDS: predniSONE 10 MG TABLET PO SCH (08:18)
[2022-04-28] MEDS: ACIDOPHILUS/BULGARICUS CHEW TAB PO SCH ×2 (08:18→20:24)
[2022-04-28] MEDS: SERTRALINE HCL 100 MG TABLET PO SCH (08:18)
[2022-04-28] MEDS: DOCUSATE SODIUM 100 MG CAPSULE PO SCH ×2 (08:18→08:25)
[2022-04-28] MEDS: CYANOCOBALAMIN 1,000 MCG TABLET PO SCH (08:18)
[2022-04-28] MEDS: levETIRAcetam 500 MG TABLET PO SCH ×2 (08:18→20:24)
[2022-04-28] MEDS: MULTIVITAMINS,THERAPEUTIC TABLET PO SCH (08:19)
[2022-04-28] MEDS: PROTEIN SUPPLEMENT (PROSTAT) 30 ML LIQUID PO SCH (08:19)
[2022-04-28 08:20] VITALS: BP 114/61
[2022-04-28] MEDS: APIXABAN 5 MG TABLET PO SCH ×2 (08:23→20:28)
[2022-04-28] MEDS: REMEDY ESSENTIAL ZINC PASTE 113 GM TOP SCH ×2 (08:24→20:31)
[2022-04-28] MEDS: GLUCERNA SHAKE 237 ML CAN PO SCH ×2 (08:24→16:36)
[2022-04-28] MEDS: OXYCODONE/APAP 5-325 MG TABLET PO PRN ×2 (08:28→20:53)
[2022-04-28] MEDS: LOPERAMIDE HCL 2 MG CAPSULE PO PRN (09:10)
[2022-04-28] MEDS: CLONAZEPAM 1 MG TABLET PO PRN ×2 (10:12→22:32)
[2022-04-28] MEDS: HYDROCODONE/APAP 5-325MG TABLET PO PRN (14:46)
[2022-04-28 16:31] VITALS: BP 95/58
[2022-04-28 18:00] VITALS: BP_SYST 100; BP_SYST 110; BP_SYST 95; BP_DIAS 58; BP_DIAS 62
[2022-04-28] MEDS: TEMAZEPAM 15 MG CAPSULE PO SCH (20:25)
[2022-04-28 20:37] VITALS: BP 103/55
[2022-04-29] MEDS: PIPERACILLIN SODIUM/TAZOBACTAM 3.375 G in IV DEXTROSE 5% 100 ML IV SCH ×3 (02:29→17:20)
[2022-04-29] MEDS: IPRATROPIUM BROMIDE 0.5 MG/2.5 ML NEBU NEB SCH ×6 (03:30→23:30)
[2022-04-29] MEDS: ALBUTEROL SULFATE 2.5 MG/3 ML NEBU NEB SCH ×6 (03:30→23:30)
[2022-04-29] MEDS: PANTOPRAZOLE SODIUM 40 MG TABLET.DR PO SCH (06:10)
[2022-04-29 07:50] VITALS: BP 127/75
[2022-04-29] MEDS: APIXABAN 5 MG TABLET PO SCH ×2 (09:20→21:03)
[2022-04-29] MEDS: predniSONE 10 MG TABLET PO SCH (09:20)
[2022-04-29] MEDS: MULTIVITAMINS,THERAPEUTIC TABLET PO SCH (09:20)
[2022-04-29] MEDS: QUETIAPINE FUMARATE 100 MG TABLET PO SCH ×2 (09:21→15:54)
[2022-04-29] MEDS: SERTRALINE HCL 100 MG TABLET PO SCH (09:21)
[2022-04-29] MEDS: ACIDOPHILUS/BULGARICUS CHEW TAB PO SCH ×2 (09:22→21:02)
[2022-04-29] MEDS: levETIRAcetam 500 MG TABLET PO SCH ×2 (09:22→21:02)
[2022-04-29] MEDS: PROTEIN SUPPLEMENT (PROSTAT) 30 ML LIQUID PO SCH (09:23)
[2022-04-29] MEDS: POTASSIUM CHLORIDE 10 MEQ TAB.PRT.SR PO SCH (09:23)
[2022-04-29] MEDS: CYANOCOBALAMIN 1,000 MCG TABLET PO SCH (09:24)
[2022-04-29] MEDS: GLUCERNA SHAKE 237 ML CAN PO SCH ×2 (09:24→15:56)
[2022-04-29] MEDS: REMEDY ESSENTIAL ZINC PASTE 113 GM TOP SCH ×2 (09:24→21:03)
[2022-04-29] MEDS: HYDROCODONE/APAP 5-325MG TABLET PO PRN ×2 (09:33→21:03)
[2022-04-29 16:00] VITALS: BP 105/61
[2022-04-29] MEDS: CLONAZEPAM 1 MG TABLET PO PRN (18:49)
[2022-04-29] MEDS: TEMAZEPAM 15 MG CAPSULE PO SCH (21:02)
[2022-04-29 22:02] VITALS: BP 98/54
[2022-04-30] MEDS: PIPERACILLIN SODIUM/TAZOBACTAM 3.375 G in IV DEXTROSE 5% 100 ML IV SCH ×3 (02:04→17:15)
[2022-04-30] MEDS: ALBUTEROL SULFATE 2.5 MG/3 ML NEBU NEB SCH ×7 (03:30→23:30)
[2022-04-30] MEDS: IPRATROPIUM BROMIDE 0.5 MG/2.5 ML NEBU NEB SCH ×7 (03:30→23:30)
[2022-04-30 04:08] VITALS: BP 100/57
[2022-04-30] MEDS: PANTOPRAZOLE SODIUM 40 MG TABLET.DR PO SCH (06:32)
[2022-04-30 07:03] LABS: HEMATOCRIT 22.8 % (31.2-41.9); MEAN CORPUSCULAR HEMOGLOBIN 34.3 uug (24.7-32.8); MEAN CORPUSCULAR VOLUME 103.8 fL (75.5-95.3); PLATELET COUNT (AUTO) 347 K/uL (179-408)
[2022-04-30 07:18] LABS: BILIRUBIN,TOTAL 0.2 mg/dL (0.2-1.0); MAGNESIUM 1.8 mg/dL (1.8-2.4); PHOSPHOROUS 5.5 mg/dL (2.5-4.9); POTASSIUM 4.1 mmol/L (3.5-5.1); TOTAL PROTEIN, SERUM 5.5 g/dL (6.4-8.2)
[2022-04-30 07:50] VITALS: BP 110/64
[2022-04-30] MEDS: PROTEIN SUPPLEMENT (PROSTAT) 30 ML LIQUID PO SCH (09:17)
[2022-04-30] MEDS: SERTRALINE HCL 100 MG TABLET PO SCH (09:18)
[2022-04-30] MEDS: levETIRAcetam 500 MG TABLET PO SCH ×2 (09:18→20:21)
[2022-04-30] MEDS: POTASSIUM CHLORIDE 10 MEQ TAB.PRT.SR PO SCH (09:18)
[2022-04-30] MEDS: ACIDOPHILUS/BULGARICUS CHEW TAB PO SCH ×2 (09:19→20:21)
[2022-04-30] MEDS: QUETIAPINE FUMARATE 100 MG TABLET PO SCH ×2 (09:19→16:49)
[2022-04-30] MEDS: HYDROCODONE/APAP 10-325 MG TABLET PO PRN ×2 (09:19→20:27)
[2022-04-30] MEDS: predniSONE 10 MG TABLET PO SCH (09:20)
[2022-04-30] MEDS: CYANOCOBALAMIN 1,000 MCG TABLET PO SCH (09:20)
[2022-04-30] MEDS: APIXABAN 5 MG TABLET PO SCH ×2 (09:21→20:21)
[2022-04-30] MEDS: MULTIVITAMINS,THERAPEUTIC TABLET PO SCH (09:21)
[2022-04-30] MEDS: GLUCERNA SHAKE 237 ML CAN PO SCH ×2 (09:22→16:50)
[2022-04-30] MEDS: REMEDY ESSENTIAL ZINC PASTE 113 GM TOP SCH ×2 (09:23→20:22)
[2022-04-30] MEDS: CLONAZEPAM 1 MG TABLET PO PRN (12:40)
[2022-04-30 16:00] VITALS: BP 106/60
--- NOTE | 2022-04-30 16:38 | NUR ---
DR OCONNELL MADE AWARE ABOUT NEUROLOGY CONSULT.
--- NOTE | 2022-04-30 19:27 | NUR ---
Pt. resting comfortably, pain medications given. Vitals stable but bp on the low end which is the usual on this pt. no SOB.
[2022-04-30] MEDS: TEMAZEPAM 15 MG CAPSULE PO SCH (20:22)
[2022-04-30 21:31] VITALS: BP 128/61
--- NOTE | 2022-04-30 23:49 | NUR ---
PATIENT REFUSED BREATHING TREATMENT SAID SHE WOULD BE SLEEPING AND NOT TO WAKE HER UP FOR THE BREATHING TREATMENT. VERIFIED PATIENT WAS SLEEPING.
[2022-05-01] MEDS: PIPERACILLIN SODIUM/TAZOBACTAM 3.375 G in IV DEXTROSE 5% 100 ML IV SCH ×3 (01:21→18:29)
[2022-05-01] MEDS: IPRATROPIUM BROMIDE 0.5 MG/2.5 ML NEBU NEB SCH ×6 (03:30→23:18)
[2022-05-01] MEDS: ALBUTEROL SULFATE 2.5 MG/3 ML NEBU NEB SCH ×6 (03:30→23:18)
[2022-05-01 06:08] VITALS: BP 107/66
[2022-05-01] MEDS: PANTOPRAZOLE SODIUM 40 MG TABLET.DR PO SCH (06:27)
[2022-05-01 07:41] VITALS: BP 117/62
[2022-05-01] MEDS: SERTRALINE HCL 100 MG TABLET PO SCH (08:25)
[2022-05-01] MEDS: POTASSIUM CHLORIDE 10 MEQ TAB.PRT.SR PO SCH (08:25)
[2022-05-01] MEDS: ACIDOPHILUS/BULGARICUS CHEW TAB PO SCH ×2 (08:25→20:33)
[2022-05-01] MEDS: levETIRAcetam 500 MG TABLET PO SCH ×2 (08:25→20:33)
[2022-05-01] MEDS: PROTEIN SUPPLEMENT (PROSTAT) 30 ML LIQUID PO SCH (08:25)
[2022-05-01] MEDS: HYDROCODONE/APAP 10-325 MG TABLET PO PRN ×2 (08:26→20:36)
[2022-05-01] MEDS: LOPERAMIDE HCL 2 MG CAPSULE PO PRN ×3 (08:26→20:35)
[2022-05-01] MEDS: predniSONE 10 MG TABLET PO SCH (08:26)
[2022-05-01] MEDS: CYANOCOBALAMIN 1,000 MCG TABLET PO SCH (08:27)
[2022-05-01] MEDS: MULTIVITAMINS,THERAPEUTIC TABLET PO SCH (08:27)
[2022-05-01] MEDS: QUETIAPINE FUMARATE 100 MG TABLET PO SCH ×2 (08:27→16:37)
[2022-05-01] MEDS: APIXABAN 5 MG TABLET PO SCH ×2 (08:30→20:35)
[2022-05-01] MEDS: GLUCERNA SHAKE 237 ML CAN PO SCH ×2 (08:31→16:37)
[2022-05-01] MEDS: REMEDY ESSENTIAL ZINC PASTE 113 GM TOP SCH ×2 (08:39→20:37)
[2022-05-01] MEDS: CLONAZEPAM 1 MG TABLET PO PRN (10:07)
[2022-05-01 15:45] VITALS: BP 96/48
[2022-05-01] MEDS: ACETAMINOPHEN 325 MG TABLET PO PRN (15:50)
--- NOTE | 2022-05-01 15:55 | NUR ---
CHRISTIE 5/ GIVEN FOR HIP PAIN 11/05 Addendum: 05/05/22 at 1503 by Luisa Menendez RN CHRISTIE GIVEN ON 04/29/22 @1555 FOR HIP PAIN 11/05
--- NOTE | 2022-05-01 19:42 | NUR ---
RECEIVED REPORT FROM ELBERT MORALEZ SHIFT RN. PATIENT IS ALERT AND ORIENTED X4 AND SPEAKS POLISH. PATIENT TOLERATES PO MEDICATIONS AND DIET WELL. PATIENT ONLY REFUSED BREAKFAST. PATIENT PARTICIPATES WITH PHYSICAL THERAPY SCHEDULED. IV ANTIBIOTICS GIVEN ORDERED. PATIENT COMPLAINED OF PAIN. RN GAVE NORCO ORDERED; AND TYLENOL FOR HEADACHE. PER DR. LAWRENCE, HE REQUESTED A PSYCH CONSULT. RN INPUT ORDERS AND FAXED INFORMATION OVER TO ON-CALL PSYCH CONSULT DR. HENRY. DR. HENRY VISITED PATIENT TO ASSISTS WITH HER PSYCH MEDICATIONS CONCERNS. NO ACUTE DISTRESS NOTED. FALL PRECAUTIONS IN PLACE, INCLUDING BED IN LOWEST POSITION AND BED ALARM ON. ALL NEEDS MET AT THIS TIME. RN ENDORSED CARE TO ELBERT MORALEZ RN.
[2022-05-01] MEDS ORDERED: CLONAZEPAM 0.5 MG TABLET PO PRN (19:45)
[2022-05-01 20:00] VITALS: BP 98/57
[2022-05-01] MEDS: ARIPIPRAZOLE 5 MG TABLET PO SCH (20:35)
[2022-05-01] MEDS: TEMAZEPAM 15 MG CAPSULE PO SCH (20:36)
[2022-05-02] MEDS: PIPERACILLIN SODIUM/TAZOBACTAM 3.375 G in IV DEXTROSE 5% 100 ML IV SCH ×2 (01:36→10:45)
[2022-05-02] MEDS: IPRATROPIUM BROMIDE 0.5 MG/2.5 ML NEBU NEB SCH ×5 (03:30→15:08)
[2022-05-02] MEDS: ALBUTEROL SULFATE 2.5 MG/3 ML NEBU NEB SCH ×5 (03:30→15:08)
[2022-05-02] MEDS: HYDROCODONE/APAP 10-325 MG TABLET PO PRN ×2 (04:44→16:41)
[2022-05-02 05:23] VITALS: BP 116/57
[2022-05-02] MEDS: PANTOPRAZOLE SODIUM 40 MG TABLET.DR PO SCH (06:07)
[2022-05-02 08:00] VITALS: BP 124/72
[2022-05-02] MEDS: PROTEIN SUPPLEMENT (PROSTAT) 30 ML LIQUID PO SCH (08:00)
[2022-05-02] MEDS: MULTIVITAMINS,THERAPEUTIC TABLET PO SCH (09:08)
[2022-05-02] MEDS: ARIPIPRAZOLE 5 MG TABLET PO SCH (09:08)
[2022-05-02] MEDS: predniSONE 10 MG TABLET PO SCH (09:09)
[2022-05-02] MEDS: POTASSIUM CHLORIDE 10 MEQ TAB.PRT.SR PO SCH (09:09)
[2022-05-02] MEDS: APIXABAN 5 MG TABLET PO SCH (09:09)
[2022-05-02] MEDS: SERTRALINE HCL 100 MG TABLET PO SCH (09:09)
[2022-05-02] MEDS: ACIDOPHILUS/BULGARICUS CHEW TAB PO SCH (09:09)
[2022-05-02] MEDS: CYANOCOBALAMIN 1,000 MCG TABLET PO SCH (09:10)
[2022-05-02] MEDS: levETIRAcetam 500 MG TABLET PO SCH (09:10)
[2022-05-02] MEDS: REMEDY ESSENTIAL ZINC PASTE 113 GM TOP SCH (09:10)
[2022-05-02] MEDS: GLUCERNA SHAKE 237 ML CAN PO SCH (09:10)
[2022-05-02] MEDS: LOPERAMIDE HCL 2 MG CAPSULE PO PRN (11:29)
--- NOTE | 2022-05-02 12:41 | NUR ---
WOUND CARE CONSULT: PT PRESENTS WITH RASH TO GROIN FOLDS, INNER THIGHS, PERINEUM AND GLUTEAL CREASE. RECOMMENDATIONS MADE FOR SKIN PROTECTION. DISCUSSED WITH NURSING STAFF. IN AGREEMENT WITH PLAN OF CARE. Addendum: 05/02/22 at 1251 by BRANDEE TOVAR RN LEFT ANKLE WOUND IS CLOSED.
[2022-05-02] MEDS ORDERED: CLOTRIMAZOLE/BETAMET DIPROP CREAM 15 GM TUBE TOP SCH (14:00)
[2022-05-02] MEDS: HYDROCODONE/APAP 5-325MG TABLET PO PRN (14:35)
[2022-05-02 16:00] VITALS: BP 117/80
--- NOTE | 2022-05-02 16:53 | NUR ---
EMS came for patient to go home with belongings and discharge paper signed and appropriate paperwork provided to patient. The discharge medication prescription for the patient was incomplete and not matching with the TMS. Spoke with Dr. Isaac about situation and stated to reach out to rehab doctor. As for the Klonopin, Dr. Isaac stated to tell the patient to continue on Klonopin if they have it at home and if not to contact their primary doctor for the prescription. Spoke with Jen Watt MD about discharge pain medications not properly ordered for the patient to be able to receive to pharmacy right away. MD is aware of situation and suggested for the patient to go to the [facility] and call [phone] to then ask for a video visit for pain management. Education and instructions about their prescription medications were verbally discussed and patient understands stating "alright then". TAYA midline was dc'd and was intact with no excessive bleeding or complaints from the patient. Patient was dressed and clean ready for d/c. Was in no apparent distress. Most belongings were already sent home earlier, stated by patient. Provided walker was brought with patient to use for home. Safety and comfort were maintained. Patient happy to go home.
== END 2022-05-02 17:00 | disposition home health service (06) | DRG 871 ==
PROVIDERS: ADMIT Physical Medicine & Rehabilitation Pain Medicine; ATTEND Physical Medicine & Rehabilitation
DX: A41.9 Sepsis, unspecified organism (principal); E43 Unspecified severe protein-calorie malnutrition; J69.0 Pneumonitis due to inhalation of food and vomit; J96.22 Acute and chronic respiratory failure with hypercapnia; J96.21 Acute and chronic respiratory failure with hypoxia; D68.59 Other primary thrombophilia; F11.20 Opioid dependence, uncomplicated; J44.0 Chronic obstructive pulmonary disease with (acute) lower respiratory infection; F33.1 Major depressive disorder, recurrent, moderate; J10.1 Influenza due to other identified influenza virus with other respiratory manifestations; S72.142D Displaced intertrochanteric fracture of left femur, subsequent encounter for closed fracture with routine healing; W19.XXXD Unspecified fall, subsequent encounter; D64.9 Anemia, unspecified; E05.90 Thyrotoxicosis, unspecified without thyrotoxic crisis or storm; E78.5 Hyperlipidemia, unspecified; F43.10 Post-traumatic stress disorder, unspecified; G40.909 Epilepsy, unspecified, not intractable, without status epilepticus; G89.4 Chronic pain syndrome; I48.91 Unspecified atrial fibrillation; E61.1 Iron deficiency; R19.5 Other fecal abnormalities; E66.9 Obesity, unspecified; E87.6 Hypokalemia; K02.9 Dental caries, unspecified; K04.7 Periapical abscess without sinus; M51.16 Intervertebral disc disorders with radiculopathy, lumbar region; F41.1 Generalized anxiety disorder; Z68.29 Body mass index [BMI] 29.0-29.9, adult; Z91.81 History of falling; Z87.891 Personal history of nicotine dependence
CPT/HCPCS: 36415; 70486; 71045; 73502; 83735; 84100; 85025; 86140; 94640; 97535-GO-CO; A6209; J2543; J2920; J3590; J7040; J7512

== ENCOUNTER 2023-02-09 20:43 | Inpatient (IN) | payer MEDICARE, OTHER ==
[~2023-02-09] VITALS: Ht 157.5 cm; Wt 59.9 kg
[~2023-02-09 20:43] MED LIST changes: -ALBU18HF2 INH; -CLON1TAB12 PO; -FLUT1DIS28 IH; -PHEN100C4 PO; -POTA10CA43 PO; -PROP10TA10 PO; -QUET400T PO; -TIOT18CA3 INH
[2023-02-09] MEDS ORDERED: ACETAMINOPHEN 650 MG SUPP.RECT RC PRN (21:15)
[2023-02-09] MEDS ORDERED: ZOLP5TAB8 PO (21:47)
[2023-02-09] MEDS ORDERED: CEFE2FRO IV (22:03)
[2023-02-09] MEDS ORDERED: ENOX40DI SQ (22:05)
[2023-02-09] MEDS ORDERED: SERT50TA PO (22:25)
[2023-02-09] MEDS ORDERED: MAGN400O6 PO ×2 (22:25)
[2023-02-09] MEDS ORDERED: QUET200T PO (22:25)
[2023-02-09] MEDS ORDERED: LEVE500T9 PO (22:51)
[2023-02-09] MEDS ORDERED: VANC750P13 IV (22:51)
[2023-02-09] MEDS ORDERED: ONDA4AMP IV (22:51)
[2023-02-09] MEDS ORDERED: FLUT1BLS IH (23:20)
[2023-02-09] MEDS ORDERED: IPRA0.2S6 NEB (23:20)
[2023-02-10] MEDS ORDERED: ZINC113P3 TP (02:18)
[2023-02-10] MEDS: HYDROCODONE/APAP 5-325MG TABLET PO PRN ×2 (04:58→10:01)
[2023-02-10 05:21] VITALS: O2SAT 95
[2023-02-10 05:59] VITALS: BP 122/64; TEMP 98.1; O2SAT 97
[2023-02-10] MEDS ORDERED: ALBU2.5V13 NEB (07:54)
[2023-02-10] MEDS ORDERED: RXVAN IV (07:58)
[2023-02-10] MEDS ORDERED: QUET200T PO (08:01)
[2023-02-10] MEDS ORDERED: AMIN30LI25 PO (08:02)
[2023-02-10 08:23] VITALS: BP 122/66; TEMP 98.7; O2SAT 96
[2023-02-10] MEDS ORDERED: QUETIAPINE FUMARATE 200 MG TABLET PO SCH (09:30)
[2023-02-10] MEDS ORDERED: ZOLPIDEM 5 MG TABLET PO PRN (09:30)
[2023-02-10] MEDS ORDERED: IPRATROPIUM BROMIDE 0.5 MG/2.5 ML NEBU NEB PRN ×2 (09:30→14:15)
[2023-02-10] MEDS ORDERED: levETIRAcetam 250 MG TABLET PO SCH (09:30)
[2023-02-10] MEDS ORDERED: MAGNESIUM HYDROXIDE 30 ML LIQUID UDC PO PRN (09:30)
[2023-02-10] MEDS: QUETIAPINE FUMARATE 200 MG TABLET PO SCH ×2 (10:10→14:05)
[2023-02-10] MEDS: ENOXAPARIN SODIUM 40 MG/0.4 ML DISP.SYRIN SQ SCH (10:11)
[2023-02-10] MEDS: FLUTICASONE/VILANTEROL 1 EACH BLST.W.DEV IH SCH (11:03)
[2023-02-10] MEDS: CEFEPIME HCL 2 G in IV DEXTROSE 5% 100 ML IV SCH ×2 (14:06→21:25)
[2023-02-10] MEDS: PROTEIN SUPPLEMENT (PROSTAT) 30 ML LIQUID PO SCH ×2 (14:06→17:00)
[2023-02-10] MEDS ORDERED: ALBUTEROL SULFATE 2.5 MG/3 ML NEBU NEB PRN (14:15)
[2023-02-10 16:15] VITALS: BP 92/44; TEMP 97.8; O2SAT 96
[2023-02-10] MEDS: IV NS 1000 ML 1,000 ML IV PRN (16:59)
[2023-02-10] MEDS: SERTRALINE HCL 100 MG TABLET PO SCH (16:59)
[2023-02-10 20:40] VITALS: BP 96/48; TEMP 97.7; O2SAT 97
[2023-02-10] MEDS: levETIRAcetam 500 MG TABLET PO SCH (21:24)
[2023-02-10 22:43] VITALS: BP 101/52; O2SAT 100
[2023-02-11] MEDS: HYDROCODONE/APAP 5-325MG TABLET PO PRN ×2 (04:01→10:21)
[2023-02-11 04:49] VITALS: BP 128/68; TEMP 97.9; O2SAT 100
[2023-02-11] MEDS: CEFEPIME HCL 2 G in IV DEXTROSE 5% 100 ML IV SCH (05:25)
[2023-02-11] MEDS: IV NS 1000 ML 1,000 ML IV PRN (06:25)
[2023-02-11 06:46] VITALS: O2SAT 95
[2023-02-11 07:29] LABS: BASOPHILS # (AUTO) 0.1 K/UL (0.0-0.2); BASOPHILS % (AUTO) 0.8 % (0.0-2.0); EOSINOPHILS # (AUTO) 0.4 K/uL (0.0-0.7); EOSINOPHILS % (AUTO) 4.1 % (0.0-7.0); HEMATOCRIT 31.9 % (31.2-41.9); HEMOGLOBIN 10.3 g/dL (10.9-14.3); LYMPHOCYTES # (AUTO) 2.4 K/uL (0.8-4.8); LYMPHOCYTES % (AUTO) 23.2 % (20.5-51.5); MEAN CORPUSCULAR HEMOGLOBIN 31.7 uug (24.7-32.8); MEAN CORPUSCULAR HGB CONC 32 g/dL (32.3-35.6); MONOCYTES # (AUTO) 0.6 K/uL (0.1-1.30); MONOCYTES % (AUTO) 5.9 % (0.0-11.0); NEUTROPHILS # (AUTO) 6.8 K/uL (1.8-8.9); PLATELET COUNT (AUTO) 391 K/uL (179-408); RED BLOOD CELL COUNT(AUTO) 3.26 MIL/uL (3.63-4.92); RED CELL DISTRIBUTION WIDTH 14.4 % (12.3-17.7); WHITE BLOOD COUNT (AUTO) 10.2 K/uL (3.8-11.8)
[2023-02-11 07:37] LABS: DIFFERENTIAL COMMENT 1
[2023-02-11 07:55] LABS: THYROID STIMULATING HORMONE 1.031 mIU/mL (0.358-3.740)
[2023-02-11 08:00] VITALS: BP 111/54; TEMP 98.5; O2SAT 97
[2023-02-11 08:00] LABS: IRON, SERUM 30 ug/dL (50-175)
[2023-02-11] MEDS: PROTEIN SUPPLEMENT (PROSTAT) 30 ML LIQUID PO SCH (08:24)
[2023-02-11] MEDS: SERTRALINE HCL 100 MG TABLET PO SCH (08:24)
[2023-02-11] MEDS: levETIRAcetam 500 MG TABLET PO SCH (08:24)
[2023-02-11 08:28] LABS: ALANINE AMINOTRANSFERASE 14 U/L (14-59); ALBUMIN 2.3 g/dL (3.4-5.0); ALKALINE PHOSPHATASE 82 U/L (50-136); ASPARTATE AMINOTRANSFERASE 14 U/L (15-37); BILIRUBIN,TOTAL 0.3 mg/dL (0.2-1.0); CALCIUM 9.3 mg/dL (8.5-10.1); CARBON DIOXIDE 27 mmol/L (21-32); CHLORIDE 107 mmol/L (98-107); CHOLESTEROL 155 mg/dL (<200); CREATININE 0.7 mg/dL (0.6-1.3); GLUCOSE 89 mg/dL (74-106); HDL CHOLESTEROL 49 mg/dL (40-60); MAGNESIUM 2.4 mg/dL (1.8-2.4); NT-PRO BNP 221 pg/mL (0-125); PHOSPHOROUS 3.7 mg/dL (2.5-4.9); POTASSIUM 3.6 mmol/L (3.5-5.1); SODIUM SERUM 136 mmol/L (136-145); TOTAL PROTEIN, SERUM 6.4 g/dL (6.4-8.2); TRIGLYCERIDES 122 MG/DL (30-150); UREA NITROGEN, BLOOD 15 mg/dL (7-18)
[2023-02-11] MEDS: FLUTICASONE/VILANTEROL 1 EACH BLST.W.DEV IH SCH (08:33)
[2023-02-11] MEDS: ENOXAPARIN SODIUM 40 MG/0.4 ML DISP.SYRIN SQ SCH (08:34)
[2023-02-11] MEDS ORDERED: CHOLECALCIFEROL 1,000 UNIT TABLET PO SCH (09:00)
[2023-02-11] MEDS ORDERED: QUETIAPINE FUMARATE 200 MG TABLET PO SCH (09:00)
[2023-02-11] MEDS ORDERED: ASCO500C18 PO (10:54)
[2023-02-11] MEDS ORDERED: FERR325T23 PO (10:54)
[2023-02-11] MEDS ORDERED: QUET200T PO (11:50)
[2023-02-11 12:00] VITALS: O2SAT 95
== END 2023-02-11 12:10 | disposition home health service (06) | DRG 871 ==
PROVIDERS: ADMIT Physical Medicine & Rehabilitation Pain Medicine; ATTEND Physical Medicine & Rehabilitation Pain Medicine
DX: A41.9 Sepsis, unspecified organism (principal); J18.9 Pneumonia, unspecified organism; J44.0 Chronic obstructive pulmonary disease with (acute) lower respiratory infection; Z79.891 Long term (current) use of opiate analgesic; L89.619 Pressure ulcer of right heel, unspecified stage; L89.629 Pressure ulcer of left heel, unspecified stage; F32.A Depression, unspecified; F41.9 Anxiety disorder, unspecified; G40.909 Epilepsy, unspecified, not intractable, without status epilepticus; G89.29 Other chronic pain; R62.7 Adult failure to thrive; M54.9 Dorsalgia, unspecified; Z82.49 Family history of ischemic heart disease and other diseases of the circulatory system; Z83.3 Family history of diabetes mellitus; R79.89 Other specified abnormal findings of blood chemistry; S90.32XD Contusion of left foot, subsequent encounter; X58.XXXD Exposure to other specified factors, subsequent encounter
CPT/HCPCS: 36415; 83550; 83735; 84100; 84443; 84484; 85025; J0692; J1650; J7040